=== PATIENT | female | born 1975 | race Caucasian/White ===

== ENCOUNTER → 2017-10-26 12:38 | Outpatient (CLI) | payer OTHER, SELFPAY ==
--- NOTE | 2017-10-26 | FLU_PTH ---
PATIENT: LLOYD EVANS LOC: [facility] U#:[id number] AGE/SX: 50/F ROOM: RE10/26/[address]: Dr. Gloria Malik MD : 1975 BED: DIS: SPEC #: [id number] RECD: 10/26/17 14:55 STATUS: TATIANNA REQ #: [id number] ATIYA: 10/26/17 00:[address]: Gloria Malik DEPT: CYTOLOGY RECD BY: Beau Merchant ENTERED: 10/26/17 14:55 SP TYPE: Fluid OTHR DR: Dr. Alon Guerrier, DO Tissues: A - Thyroid gland, NOS B - Thyroid gland, NOS Procedures: Pap Stain (control) Special Stain Group II Surgery Specimen Level IV Cell Block Cytospin Fluid HEADER OPERATION: Ultrasound-guided fine needle aspiration left thyroid PRE-OP DIAGNOSIS: TISSUE SUBMITTED: A ? FNA left thyroid fluid for cytology, B ? FNA left thyroid slides x8 DIAGNOSIS CYTOLOGY A. Fine needle aspiration, left thyroid nodule (cytospin and cell block): Benign follicular cells present. B. Fine needle aspiration, left thyroid nodule (smears): Adequate for evaluation. Negative, consistent with benign follicular nodule. AM:sergey 10/27/17 CYTOLOGY STUDY Slides are reviewed. CYTOLOGY GROSS A - Received is 32 ml of clear fluid labeled with the patient's name and and designated per the requisition as left thyroid. Submitted for cytology preparation including cell block. B - Received are eight smears labeled with the patient's name and designated per the requisition as left thyroid. Submitted for staining. 10/26/17 TC:5 CPT: 93906, 22643, 72641
== END ==
PROVIDERS: Family Provider Student in an Organized Health Care Education/Training Program; PCP Student in an Organized Health Care Education/Training Program; Visit Provider Surgery
DX: E04.1 Nontoxic single thyroid nodule (principal)
CPT/HCPCS: 88108; 88305; 88313

== ENCOUNTER → 2018-06-16 07:23 | Outpatient (CLI) | payer BC, SELFPAY ==
--- NOTE | 2018-06-16 07:45 | BRBX_PTH ---
PATIENT: LLOYD EVANS LOC: [facility] U#:[id number] AGE/SX: 50/F ROOM: RE06/16/[address]: Dr. Gloria Malik MD : 1975 BED: DIS: SPEC #: [id number] RECD: 06/16/18 08:51 STATUS: TATIANNA SENIA #: [id number] ATIYA: 06/16/18 07:[address]: Gloria Malik DEPT: SURGICAL PATHOLOGY RECD BY: Mervin Anne ENTERED: 06/16/18 12:03 SP TYPE: BREAST BX OTHR DR: Dr. Alon Guerrier, DO Tissues: Right breast, NOS Procedures: Surgery Specimen Level IV HEADER OPERATION: Right stereotactic breast biopsy PRE-OP DIAGNOSIS: Abnormal right calcifications on mammogram TISSUE SUBMITTED: Right breast tissue ISCHEMIC TIME: 1 minute FIXATION TIME: 11.5 hours MICROSCOPIC DIAGNOSIS Right breast, stereotactic core biopsy: Benign breast parenchyma with focal fibrocystic change. Banal microcalcifications. No evidence of malignancy. AM:sergey 06/17/18 COMMENT Case has been reviewed in consultation with Dr. Morales who concurs with the above diagnosis. IDC:SJ MICROSCOPIC DESCRIPTION Slides are reviewed. GROSS DESCRIPTION Received is one container labeled with the patient's name and not further designated. The specimen consists of multiple elongated fragments of quintero-yellow fibroadipose tissue that in aggregate measure 7.5 x 2.5 x 0.3 cm. The entire specimen is submitted in three cassettes. / SJ:sergey 06/16/18 TC:5 CPT: 46275
--- NOTE | 2018-06-16 08:45 | PCM.OPRPT ---
Report of Operation Date of Procedure: 06/16/18 Pre-Operative Diagnosis: abnormal calcifications on right breast mammograms Post-Operative Diagnosis: same Surgery/Procedure Performed:: right breast stereotactifc biopsy Description of Surgical Findings:: abnormal calcifications of right breast mammograms - noted in the specimen mammogram Type of Anesthesia:: Local - 1% xylocaine Specimen's removed: right breast tissue Estimated Blood Loss (mL): < 1 Fluids Replaced: none Description of Procedure: After informed consent was given, the patient was brought into the breast biopsy suite. Appropriate time out protocol was followed. She was then placed in the prone position on the stereotactic biopsy table. The patient?s right breast was then placed in the opening at the head of the table. A manager of construction compression mammogram was then obtained in the lateral view. The suspicious radiological lesion was then identified. Stereo pictures of the lesion were then taken for XYZ coordinates. The Mammotome biopsy stylus was then positioned where it would be entering into the patient?s breast. The skin at this site was then cleansed with a surgical skin preparation. The skin and subcutaneous tissues at this site were then infiltrated with 1% xylocaine. A small skin incision was made with an 11 blade scalpel. The biopsy stylus was then positioned into the patient?s breast at the proper coordinates of depth. Using the Mammotome vacuum-assist device, several core samples of breast tissue were obtained. A specimen mammogram was the obtained and revealed that the abnormal calcifications were within the specimen. A hemostatic marker clip was then placed into the biopsy cavity and a manager of construction film revealed that it was properly deployed. The patient was then placed in the supine position and pressure was applied to the breast until no active bleeding was noted. Suture was placed to reapproximate the skin, then sterile dressing was applied. A unilateral mammogram in the CC and MLO view were then taken which revealed that the marker clip was in the same area as the previous suspicious lesion. The patient tolerated the procedure well and was discharged from the breast biopsy suite in good condition. - Complications none noted
== END ==
LOC: BIRAD 07:27
PROVIDERS: Family Provider Student in an Organized Health Care Education/Training Program; PCP Student in an Organized Health Care Education/Training Program; Referring Provider Surgery; Visit Provider Surgery
DX: R92.8 Other abnormal and inconclusive findings on diagnostic imaging of breast (principal)
CPT/HCPCS: 19081; 88305; J7050

== ENCOUNTER 2019-08-01 08:55 | Day surgery (SDC) | payer BC, SELFPAY ==
--- NOTE | 2019-08-01 07:34 | OP.PCM_ITS ---
Problem List (1) Stress incontinence Status: Acute Report of Operation Date of Procedure: 08/01/19 Pre-Operative Diagnosis: stress incontinence Post-Operative Diagnosis: same Surgery/Procedure Performed:: Altis midurethral sling, cystoscopy Type of Anesthesia:: General Estimated Blood Loss (mL): 5cc Description of Procedure: The patient is a 44-year-old female who presented to the office for evaluation and management of incontinence. She underwent cystoscopy and urodynamics. She is being treated for her urge incontinence and urgency with Myrbetriq, and decided to proceed with mid urethral sling insertion for her stress incontinence. Informed consent was obtained. Patient was taken to the operating room and placed on the operating room table. Anesthesia monitored the head, neck, airway, IV access and vital signs throughout the case. Once anesthesia was appropriately administered the patient was placed into dorsal lithotomy position and was prepped and draped in usual sterile fashion. A 16 Indonesian Becker was inserted into the urinary bladder which was drained. The mid urethra was identified and injected submucosally with 1% Xylocaine with epinephrine. A midline vertical incision was made approximately 2 cm in length. Blunt and sharp dissection was performed on either side of the urethra with care being taken to avoid entry into the urethra. Using the trochars, the alto's mid urethral sling was passed into the obturator complexes bilaterally with care being taken to avoid entrance into the urinary bladder and the vaginal mucosa. The sling lay flat against the urethra. It was not under tension. It was stationed using the tensioning suture which was then cut. The incision in the vaginal mucosa was closed using running interlocking 2-0 Vicryl. Becker catheter was removed and a cystourethroscopy was performed revealing no entrance into the urinary bladder or the urethra with any foreign material incl uding mesh or suture. The patient's bladder was left with a minimal amount of fluid. There were no complications during the procedure, she was taken to the recovery room in good condition. Grafts/Implants Used: Altis midurethral sling - Complications None - Admit VTE Documentation VTE Present on Admission: Yes VTE Mechan Device Prophylaxis: SCD's VTE Pharm Prophylaxis ordered?: No Reason prophylaxis not ordered:: Treatment Not Indicated
--- NOTE | 2019-08-01 09:10 | EKG12_ITS ---
Test Reason : PRE OP Blood Pressure : / mmHG Vent. Rate : 081 BPM Atrial Rate : 081 BPM P-R Int : 132 ms QRS Dur : 120 ms QT Int : 396 ms P-R-T Axes : 059 -30 089 degrees QTc Int : 460 ms Normal sinus rhythm Left axis deviation Right bundle branch block Abnormal ECG When compared with ECG of 12-JUN-2016 07:38, Incomplete left bundle branch block is now Present Confirmed by CAITIE GOODMAN ([id number]), news videotape editor KEENAN CRAIG ([id number]) on 08/04/2019 11:38:33 AM Referred By: Mayra Cantrell Confirmed By:CAITIE GOODMAN
[2019-08-01 09:20] VITALS: BP 117/56; PULSE 78; RESP 15; TEMP 36.8; O2SAT 98; BMI 22.4
[2019-08-01] MEDS: Lactated Ringers 1,000 ML 100 ML IV (09:29)
[2019-08-01 09:31] LABS: Hematocrit 40.6 % (37-47); Mean Corp Hgb Conc 34.5 g/dL (32-36); Mean Corpuscular Hgb 32.9 pg (27.0-32.0); Mean Corpuscular Volume 95.3 fL (81-99); Mean Platelet Vol. 10.8 fl (6.2-12.0); Platelet Count 208 K/mm3 (150-450); RBC Distribution Width CV 12.4 % (11.6-14.6); RBC Distribution Width SD 43.3 fl (35.1-43.9); Red Blood Count 4.26 M/mm3 (4.2-5.4); White Blood Count 5.3 K/mm3 (4.4-11.0)
[2019-08-01] MEDS: Ciprofloxacin 400 MG/200 ML BAG 200 MG IV (09:34)
[2019-08-01 09:44] LABS: International Normalized Ratio 1.1
[2019-08-01 09:45] LABS: Partial Thromboplast Time 30.4 Seconds (24.1-36.2)
--- NOTE | 2019-08-01 09:46 | PCM.DC.URO ---
Discharge Diet: No Restrictions Discharge Activity: May not drive while taking narcotic pain medications., May Shower May resume sexual activity in: 4 weeks Lifting Restrictions: 5 pounds Additional Activity Instructions:: no strenuous exercise, no intercourse, no swimming, no vacuuming Call your doctor if your incision/area has: Continuous Slow Oozing, Sudden Increased Bleeding, Increased Pain/ Swelling, Foul Smelling Discharge Call your doctor if you observe: Fever of 101 or Higher, Inability to urinate, Inability to have a bowel movement, Shortness of breath, Chest pain, Calf discomfort, Uncontrolled pain Allergies/Adverse Reactions: Allergies Penicillins [PCN] Allergy (Verified 08/01/19 09:19) Unknown Medications to take at Discharge Albuterol Inhaler [Ventolin Hfa (SP)] 1 - 2 puff INHALATION Q4H PRN PRN 06/28/15 Fluticasone 0.05% [Flonase Nasal [place]] 1 spray NASAL DAILY PRN 07/25/19 Mirabegron [Myrbetriq] 100 mg PO DAILY 07/25/19 Montelukast [Singulair] 10 mg PO DAILY 07/25/19 Omeprazole [Prilosec] 40 mg PO DAILY 07/25/19 Orders to be completed after discharge: Liver Profile Time Frame: 08/01/19, Facility: [facility], Location: Laboratory Partial Thromboplast Time Time Frame: 08/01/19, Facility: [facility], Location: Laboratory Prothrombin Time w/INR Time Frame: 08/01/19, Facility: [facility], Location: Laboratory Thyroid Stim Hormone (TSH) Time Frame: 08/01/19, Facility: [facility], Location: Laboratory Primary Care Physician: Alon Guerrier DO [Primary Care Provider] - Test Results: Test results from this visit will be discussed in further detail at your follow-up appointment, if applicable. Please Follow Up With: Mayra Cantrell MD When: call office for appt in 2 weeks Proposed Discharge Date: 08/01/19
[2019-08-01 09:54] LABS: AST(SGOT) 18 U/L (15-37); Alanine Aminotransfer ALT/SGPT 21 U/L (13-56); Alkaline Phosphatase 66 U/L (45-117); Bilirubin, Direct 0.13 mg/dL (0.00-0.30); Globulin 3.6 g/dL (2.2-4.2); Protein, Total 7.6 g/dL (6.4-8.2); Thyroid Stim Hormone (TSH) 0.13 uIU/mL (0.358-3.74)
[2019-08-01 10:37] VITALS: BP 117/56; BP 92/42; PULSE 67; RESP 16; TEMP 36.3; O2SAT 93
[2019-08-01 10:45] VITALS: BP 117/56; BP 95/60; PULSE 65; RESP 16; O2SAT 97
[2019-08-01 11:00] VITALS: BP 117/56; BP 121/77; PULSE 77; RESP 16; O2SAT 100
[2019-08-01 11:15] VITALS: BP 106/92; BP 117/56; PULSE 87; RESP 16; TEMP 36.6; O2SAT 99
[2019-08-01] MEDS: Acetaminophen 325 MG Tablet 650 MG PO (12:21)
[2019-08-01 12:23] VITALS: BP 117/56; BP 134/63; PULSE 71; RESP 18; TEMP 36.5; O2SAT 98
== END 2019-08-01 12:41 | disposition home or self-care (01) ==
LOC: SDC 08:59 → AC 09:00
PROVIDERS: Anesthesiology; Family Provider Student in an Organized Health Care Education/Training Program; PCP Student in an Organized Health Care Education/Training Program; Referring Provider Urology; Visit Provider Urology
PROC: 0TJB8ZZ Inspection of Bladder, Via Natural or Artificial Opening Endoscopic (ICD-10-PCS; CPT 57288; principal; 2019-08-01 10:10)
DX: N39.3 Stress incontinence (female) (male) (principal); I45.2 Bifascicular block; R35.0 Frequency of micturition; N39.41 Urge incontinence
CPT/HCPCS: 00860; 57288; 36415; 80076; 84443; 85027; 85610; 85730; 93005; J7120; J0744; J2405

== ENCOUNTER → 2020-05-07 17:47 | Outpatient (CLI) | payer BC, SELFPAY | PROVIDERS: PCP Student in an Organized Health Care Education/Training Program; Referring Provider Registered Nurse; Visit Provider Registered Nurse | DX: Z20.828 Contact with and (suspected) exposure to other viral communicable diseases (principal) | CPT/HCPCS: 87635; C9803; U0003 ==

== ENCOUNTER 2021-12-03 12:30 | Emergency (ER) | payer BC, SELFPAY ==
[2021-12-03 12:31] VITALS: BP 158/88; PULSE 114; RESP 16; TEMP 36.6; O2SAT 98; BMI 24.5
--- NOTE | 2021-12-03 12:56 | EDS_ITS ---
HPI History of Present Illness Chief Complaint: Upper Extremity Injury Informant: patient Narrative Narrative: 46-year-old female presenting with right hand and wrist pain. Patient states she punched a window on Wednesday. She complains of persistent pain. Window did not break. She is right-handed. She has tried Tylenol and ice at home. PFSH PFSH Home Medications albuterol sulfate [Ventolin HFA] 1 - 2 puff INHALATION Q4H PRN PRN 06/28/15 [History Last Taken Unknown] fluticasone propionate 1 spray NASAL DAILY PRN 07/25/19 [History Last Taken Unknown] mirabegron 100 mg PO DAILY 07/25/19 [History Last Taken Unknown] montelukast 10 mg PO DAILY 07/25/19 [History Last Taken Unknown] omeprazole 40 mg PO DAILY 07/25/19 [History Last Taken 08/01/19 07:00] hydrocodone-acetaminophen 1 tab PO Q6H PRN PRN 3 Days #6 tablet 12/03/21 [Rx Last Taken Unknown] Allergy/AdvReac Type Severity Reaction Status Date / Time Penicillins [PCN] Allergy Unknown Verified 12/03/21 12:32 Social History Smoking Status: Former smoker ROS ROS ED Constitutional Constitutional ED: Denies fever(s) Musculoskeletal Musculoskeletal: Reports other Details: Right hand and wrist pain Integumentary Denies rash Psychiatric Psychiatric: Denies suicidal thoughts EXAM Physical Exam Const Vital Signs: 12/03/21 12:31 Temperature 97.8 F Temperature Source Temporal Pulse Rate 114 H Respiratory Rate 16 Blood Pressure 158/88 H Blood Pressure Mean 111 Pulse Ox 98 Oxygen Delivery Method Room Air Positive well nourished and well developed General Appearance ED: well developed HEENT Reports normocephalic and head/scalp atraumatic Eyes PERRL and EOMs intact bilaterally Neck supple General: Negative for tenderness Chest Wall inspection of chest normal Resp normal respiratory effort and clear to auscultation bilaterally Cardio regular rate and regular rhythm no CVA tenderness Extremity Extremity Narrative: diffuse tenderness right hand and wrist. Painful full range of motion. Normal cap refill Neuro oriented x3 Sensorium / Orientation: alert Psych mental status grossly normal Skin Trauma: no lacerations or abrasions MDM MDM MDM Narrative Medical decision making narrative: X-ray right hand, wrist, forearm were read by myself and radiology and show no acute process. Patient was given Velcro wrist splint. She is advised to ice and elevate. She is given prescription for short course of [place]. She is advised to take ibuprofen. Advised to follow up with primary care physician. Advised return to ED for worsening complaints. Discharge Plan Triage Chief Complaint: Upper Extremity Injury ED Provider: Emma De La Paz Dx/Rx/DC Orders Clinical Impression: Right wrist sprain Instructions: ED Wrist Sprain Prescriptions: New hydrocodone-acetaminophen 5-325 mg tablet 1 tab PO Q6H PRN PRN (Reason: Pain) 3 Days Qty: 6 RF: 0 No Action albuterol sulfate [Ventolin HFA] 1 INHALER inhaler 1 - 2 puff inhalation Q4H PRN PRN (Reason: Wheezing) RF: 0 omeprazole 20 MG capsule 40 mg PO DAILY RF: 0 montelukast 10 MG tablet 10 mg PO DAILY RF: 0 fluticasone propionate 1 SPRAY spray,suspension 1 spray NASAL DAILY PRN (Reason: Nasal Congestion) RF: 0 mirabegron 50 MG tablet extended release 24 hr 100 mg PO DAILY RF: 0 Primary Care Provider: Alon Guerrier Referrals: Alon Guerrier DO [Primary Care Provider] - Disposition Disposition: Home, Self Care
--- NOTE | 2021-12-03 12:57 | RAD_ITS ---
STUDY: X-RAY - RIGHT RADIUS AND ULNA REASON FOR EXAM: Female, 46 years old. Pain TECHNIQUE: 2 view(s) of the forearm. COMPARISON: None. FINDINGS: There is no demonstrated soft tissue swelling. Normal visualized radius. Normal visualized ulna. RAD/Forearm 2 Views IMPRESSION: Normal x-ray examination of the radius and ulna. Electronically Signed: Pedro Brooks MD at 13:29 EDT ,
--- NOTE | 2021-12-03 12:57 | RAD_ITS ---
STUDY: X-RAY - RIGHT WRIST REASON FOR EXAM: Female, 46 years old. Pain TECHNIQUE: 3 view(s) of the wrist were obtained. COMPARISON: None. FINDINGS: Normal visualized distal radius and ulna. Normal radiocarpal articulation. Normal distal radioulnar articulation. Normal carpal bones. Normal carpal articulations. Normal carpometacarpal articulation of the thumb. Normal second through fifth carpometacarpal articulations. Normal visualized metacarpal bones. The soft tissue structures are unremarkable. RAD/Wrist min 3 Views IMPRESSION: Normal x-ray examination of the wrist. Electronically Signed: Pedro Brooks MD at 13:29 EDT ,
--- NOTE | 2021-12-03 12:57 | RAD_ITS ---
STUDY: X-RAY - RIGHT HAND REASON FOR EXAM: Female, 46 years old. Pain TECHNIQUE: 3 view(s) of the hand. COMPARISON: None. FINDINGS: Normal radiocarpal articulation. Normal distal radioulnar joint. Normal visualized carpal bones. Normal carpal articulations Normal carpometacarpal articulation of the thumb. Normal second through fifth carpometacarpal joints. Normal metacarpi. Normal metacarpophalangeal joint of the thumb. Normal interphalangeal joint of the thumb. Normal proximal and distal phalanges of the thumb. Normal metacarpophalangeal joints of the second through fifth fingers. Normal proximal and distal interphalangeal joints of the second through fifth fingers. Normal phalanges of the second through fifth fingers. The soft tissue structures are unremarkable. RAD/Hand Min 3 Views IMPRESSION: Normal x-ray examination of the hand. Electronically Signed: Pedro Brooks MD at 13:28 EDT ,
== END 2021-12-03 14:00 | disposition home or self-care (01) ==
PROVIDERS: Emergency Provider Emergency Medicine; PCP Student in an Organized Health Care Education/Training Program; Visit Provider Emergency Medicine
DX: S63.91XA Sprain of unspecified part of right wrist and hand, initial encounter (principal); Z87.891 Personal history of nicotine dependence; W22.01XA Walked into wall, initial encounter
CPT/HCPCS: 73090; 73110; 73130; 99283

== ENCOUNTER 2022-04-20 12:49 | Emergency (ER) | payer BC, SELFPAY ==
[2022-04-20 12:50] VITALS: BP 177/151; PULSE 83; RESP 24; TEMP 36.8; O2SAT 99; BMI 23.0
--- NOTE | 2022-04-20 13:10 | CT_ITS ---
STUDY: CT ABDOMEN AND PELVIS WITHOUT CONTRAST REASON FOR EXAM: Female, 46 years old. Kidney Stone RADIATION DOSAGE (If Supplied By Facility): CTDIvol = ( 6.24 ) mGy, DLP = ( 314.80 ) mGycm TECHNIQUE: Transaxial images were obtained from the dome of the diaphragm to the symphysis pubis without oral contrast, and without intravenous contrast. Sagittal and coronal images were reconstructed. Individualized dose optimization techniques were used for this CT. COMPARISON: None. FINDINGS: The visualized lung bases are unremarkable. The visualized portions of the heart are within normal limits. Normal liver. Small capsular calcification noted in the posterior medial aspect of the right lobe of the liver. There are surgical clips in the gallbladder fossa consistent with a prior cholecystectomy. Normal spleen. Normal pancreas. Normal bilateral adrenal glands. Normal right kidney. Normal left kidney. No visualized radiopaque kidney stones or hydronephrosis or hydroureter on the current study. Normal visualized stomach. Normal small intestine. There are multiple colonic diverticula consistent with diverticulosis. There is non-visualization of the appendix. No free air or free fluid or bowel dilatation or evidence of obstruction. Normal abdominal aorta. Normal inferior vena cava. Normal retroperitoneum. Normal urinary bladder. Unremarkable uterus and bilateral ovaries. Right ovarian/adnexal clips noted. A displaced 1.54 cm metallic clip is present in the right presacral region which most likely originated in the left adnexa. Small left ovarian cyst noted. Normal abdominal wall. There are diffuse degenerative changes of the visualized lumbar spine. CT/Abdomen/Pelvis without Cont IMPRESSION: 1. Colonic diverticulosis. No free air or free fluid or inflammatory stranding seen. 2. No visualized radiopaque kidney stones or hydronephrosis or hydroureter on the current study. Electronically Signed: Nathan Michael MD at 15:05 EDT ,
--- NOTE | 2022-04-20 13:14 | EDS_ITS ---
HPI HPI - GI History of Present Illness Chief Complaint: Flank Pain Narrative Narrative: Patient presents with sudden onset of right flank pain that began at 830 this morning, almost 5 hours ago. She states she got up at 5:00 in the morning to go to work, when she got there she had sudden onset of right flank pain that radiates towards the front. She denies any fevers or chills. No dysuria or hematuria. She had past medical history of uterine ablation and has not had a menstrual period for at least 10 years. She denies any exacerbating or alleviating factors. Pain is continuous and getting worse. She is slightly nauseated from the pain. [facility] Medical History IBS (irritable bowel syndrome) Home Medications albuterol sulfate 90 mcg/actuation aerosol inhaler (Ventolin HFA) 1 - 2 puff inhalation Q4H PRN PRN Wheezing 06/28/15 [History Last Taken Unknown] fluticasone propionate 50 mcg/actuation nasal spray,suspension 1 spray NASAL DAILY PRN Nasal Congestion 07/25/19 [History Last Taken Unknown] mirabegron 50 mg tablet,extended release 24 hr 100 mg PO DAILY 07/25/19 [History Last Taken Unknown] montelukast 10 mg tablet 10 mg PO DAILY 07/25/19 [History Last Taken Unknown] omeprazole 20 mg capsule,delayed release 40 mg PO DAILY 07/25/19 [History Last Taken 08/01/19 07:00] hydrocodone-acetaminophen 5-325mg 5mg-325mg 1 tab PO Q6H PRN PRN Pain 3 days #6 TABLETS 12/03/21 [Rx Last Taken Unknown] dicyclomine 20 mg tablet 20 mg PO TID PRN abdominal cramping #20 tabs 04/20/22 [Rx Last Taken Unknown] Allergy/AdvReac Type Severity Reaction Status Date / Time Penicillins [PCN] Allergy Unknown Verified 04/20/22 12:50 Social History Smoking Status: Former smoker ROS ROS ED ROS Narrative Constitutional: No fever, no chills. HEENT: No sore throat. No neck pain. No loss of vision. No rhinorrhea. Cardiovascular: No chest pain. No palpitations. No pedal edema. Respiratory: No cough, no shortness of breath. Abdominal: No abdominal pain. Positive nausea. No vomiting. Genitourinary: No dysuria. No hematuria. Positive right flank pain, sharp and stabbing. Musculoskeletal: No myalgias. No arthralgias. Neurologic: No headaches. No dizziness. No lightheadedness. Skin: No rash. No change in color. Psychiatric: No depression. No anxiety. EXAM Physical Exam Narrative Exam Narrative: Afebrile. Vital signs noted. HEENT: Normocephalic. Atraumatic. PERRL, EOMI. Neck soft and supple. No point tenderness or step off. Cardiovascular: Regular rate and rhythm. No murmurs, rubs, or gallops appreciated. Respiratory: No tachypnea. Lungs clear to auscultation bilaterally. Gastrointestinal: Abdomen soft, nontender, with normoactive bowel sounds. No rebound or guarding. Neurological: Awake. Alert. Nonfocal, nonlateralizing. Skin: No rash. Normal color. No pallor. Musculoskeletal: No pedal edema. Full range of motion extremities. Const Vital Signs: 04/20/22 12:50 Temperature 98.2 F Temperature Source Temporal Pulse Rate 83 Respiratory Rate 24 H Blood Pressure 177/151 H Blood Pressure Mean 159 Pulse Ox 99 Oxygen Delivery Method Room Air MDM MDM MDM Narrative Medical decision making narrative: Comprehensive work-up was pursued. Given her right flank pain, concern is for ureterolithiasis with obstruction. She has normal white count of 7.9, hemoglobin slightly low 11.9, hematocrit 34.7 with normal platelet count of 175. Electrolyte panel is grossly unremarkable except for chloride 114, BUN elevated at 19 with a creatinine of 1.0. Glucose appropriately elevated at 92 with a normal anion gap of 6. Urinalysis shows no evidence of white cells or red cells. CT of the abdomen and pelvis without contrast shows no acute process. There is no ureterolithiasis or hydronephrosis. At this point in time, I am unsure as to the cause of her right-sided flank pain. Upon repeat examination her abdomen remains soft. She states she is having pain in the right flank that is also crampy in nature at times. When you press on it she states that it goes up along her right flank. She was given 1 Bentyl tablet here in the emergency department and prescription written for the next week. She can take that intermittently and follow-up with her primary care physician. I feel she can be discharged safely home with follow-up. Return instructions to the emergency department were reviewed. Disposition is discharged home in stable condition. Lab Data Labs: Laboratory Results - last 24 hr 04/20/22 04/20/22 04/20/22 13:25 13:25 14:06 WBC 7.9 RBC 3.53 L Hgb 11.9 L Hct 34.7 L MCV 98.3 MCH 33.7 H MCHC 34.3 RDW Std Deviation 45.1 H RDW Coeff of Jay 12.7 Plt Count 175 MPV 11.1 Immature Gran % (Auto) 0.300 Neut % (Auto) 65.4 Lymph % (Auto) 28.1 [place] % (Auto) 4.8 Eos % (Auto) 1.1 Baso % (Auto) 0.3 Absolute Neuts (auto) 5.2 Absolute Lymphs (auto) 2.21 Nucleated RBC % 0 Sodium 141 Potassium 4.0 Chloride 114 H Carbon Dioxide 21.0 Anion Gap 6 BUN 19 H Creatinine 1.00 Estim Creat Clear Calc 59.39 Est GFR (MDRD) Af Amer 78 Est GFR (MDRD) Non-Af 64 BUN/Creatinine Ratio 19.1 Glucose 92 Calcium 8.7 Urine Color Yellow Urine Clarity Clear Urine pH 7.0 Ur Specific [place] 1.015 Urine Protein Negative Urine Glucose (UA) Normal Urine Ketones 15 H Urine Occult Blood Negative Urine Nitrite Negative Urine Bilirubin Negative Urine Urobilinogen Normal Ur Leukocyte Esterase Negative Urine RBC 0 SEEN Urine WBC 0 SEEN Ur Squamous Epith Cells 0-5 SEEN Urine Bacteria 0 SEEN Urine Mucus 0 SEEN Radiography Diagnostic Testing: Clinical Impression(s) from Imaging Studies Abdomen/Pelvis CT 04/20/22 13:10 IMPRESSION: 1. Colonic diverticulosis. No free air or free fluid or inflammatory stranding seen. 2. No visualized radiopaque kidney stones or hydronephrosis or hydroureter on the current study. Electronically Signed: Nathan Michael MD at 15:05 EDT , Discharge Plan Triage Chief Complaint: Flank Pain Other Complaint: Abd Pain ED Provider: Carlos Eduardo Jang Dx/Rx/DC Orders Clinical Impression: Right flank pain, Abdominal cramping Instructions: ED Abdominal Pain Unkn Cause Fem, ED Flank Pain, Uncertain Cause Prescriptions: New dicyclomine 20 mg tablet 20 mg PO TID PRN (Reason: abdominal cramping) Qty: 20 0RF No Action albuterol sulfate [Ventolin HFA] 1 INHALER inhaler 1 - 2 puff inhalation Q4H PRN PRN (Reason: Wheezing) omeprazole 20 MG capsule 40 mg PO DAILY montelukast 10 MG tablet 10 mg PO DAILY fluticasone propionate 1 SPRAY spray,suspension 1 spray NASAL DAILY PRN (Reason: Nasal Congestion) mirabegron 50 MG tablet extended release 24 hr 100 mg PO DAILY hydrocodone-acetaminophen 5-325 mg tablet 1 tab PO Q6H PRN PRN (Reason: Pain) 3 Days Qty: 6 0RF Stand Alone Forms: ED Work / School Excuse Primary Care Provider: Alon Guerrier Referrals: Alon Guerrier, DO [Primary Care Provider] - 3-5 Days if not improving Disposition Disposition: Home, Self Care
[2022-04-20] MEDS: Ketorolac 15 MG/ML Vial IV (13:24)
[2022-04-20] MEDS: Ondansetron 4 MG/2 ML Vial IV (13:24)
[2022-04-20] MEDS: Morphine 4 MG/ML Syringe IV (13:24)
[2022-04-20 13:32] LABS: Absolute Lymphocyte Count 2.21 X10^3/uL (0.83-4.51); Absolute Neutrophil Count 5.2 X10^3/uL (2.0-7.7); Basophil# 0.02 X10^3/uL; Basophil% 0.3 % (0-1); Eosinophil# 0.09 X10^3/uL; Eosinophils% 1.1 % (0-5); Hematocrit 34.7 % (37-47); Hemoglobin 11.9 g/dL (12.0-15.0); Lymphocyte # 2.21 X10^3/ul (0.83-4.51); Lymphocyte % 28.1 % (19-41); Mean Corp Hgb Conc 34.3 g/dL (32-36); Mean Corpuscular Hgb 33.7 pg (27.0-32.0); Mean Corpuscular Volume 98.3 fL (81-99); Mean Platelet Vol. 11.1 fl (6.2-12.0); Monocyte# 0.38 X10^3/uL; Monocyte% 4.8 % (0-10); NRBC Flagged by Analyzer 0 % (0-5); Neutrophil # 5.15 X10^3/uL (2.7-7.7); Neutrophil % 65.4 % (47-70); Platelet Count 175 K/mm3 (150-450); RBC Distribution Width CV 12.7 % (11.6-14.6); RBC Distribution Width SD 45.1 fl (35.1-43.9); Red Blood Count 3.53 M/mm3 (4.2-5.4); White Blood Count 7.9 K/mm3 (4.4-11.0)
[2022-04-20 13:46] LABS: Anion Gap 6 (5-15); BUN 19 mg/dL (7-18); BUN/Creat Ratio 19.1 RATIO (10-20); Calcium,Total 8.7 mg/dL (8.5-10.1); Chloride 114 mmol/L (98-107); EST Glomerular Filtration Rate 64 mL/min (>60); Est Glom Filt Rate - Afr Amer 78 mL/min (>60); Estimated Creatinine Clearance 59.39 ml/min; Glucose 92 mg/dL (74-106); Sodium Level 141 mmol/L (136-145)
[2022-04-20 14:08] LABS: Bacteria 0 SEEN /hpf (None Seen); Mucous, Urine 0 SEEN /hpf (<or=2+); Red Blood Cells-Urine 0 SEEN /hpf (0-5); White Blood Cells 0 SEEN /hpf (0-5)
[2022-04-20 14:11] LABS: Color, Urine Yellow (Yellow); Glucose, Dipstick Normal (Normal); Ketone-Dipstick 15 mg/dl (Negative); Leukocyte Esterase-Dipstick Negative /ul (Negative); Nitrite-Dipstick Negative (Negative); Occult Blood-Urine Negative /ul (Negative); Protein-Dipstick Negative (Negative); Specific Gravity, Urine 1.015 (1.002-1.030); Urine Bilirubin Dipstick Negative (Negative); Urine Clarity Clear (Clear); Urine Urobilinogen Normal (Normal)
[2022-04-20 14:19] LABS: Squamous Epithelial Cells - UA 0-5 SEEN /hpf (5-10)
[2022-04-20] MEDS: Dicyclomine 10 MG Capsule 20 MG PO (15:30)
[2022-04-20 15:42] VITALS: BP 133/70
== END 2022-04-20 15:47 | disposition home or self-care (01) ==
PROVIDERS: Emergency Provider Emergency Medicine; PCP Student in an Organized Health Care Education/Training Program; Visit Provider Emergency Medicine
DX: R10.9 Unspecified abdominal pain (principal); R11.0 Nausea; Z87.891 Personal history of nicotine dependence; K58.9 Irritable bowel syndrome, unspecified
CPT/HCPCS: 74176; 80048; 81001; 85025; 99284; A4216; J2405

== ENCOUNTER 2022-05-12 18:53 | Observation (INO) | payer BC, SELFPAY ==
[2022-05-12 18:54] VITALS: BP 134/65; PULSE 97; RESP 16; TEMP 36.8; O2SAT 97; BMI 22.1
--- NOTE | 2022-05-12 19:34 | CM.ED ---
SW Note SW met with patient as chart indicated patient was here for detox. Patient said that she wants detox from alcohol. Patient's last drink was early this morning or last night. Patient said that she is a recovering drug addict but I have never done detox before. Patient said that she previously tried heroin and meth but has been sober since 2016 from those drugs. Patient reports she continues to smoke marijuana. Patient said that some days I don't drink but when I do.. I binge drink. Patient said that she drank Wednesday/Wednesday/Wednesday and Wednesday. Patient reports drinking 4 10 packs of Captalfonso Choudhary during this past weekend. Patient said that she went to [facility] as I couldn't keep anything down .. I thought I had alcohol poisoning. SW reviewed with patient that she can not have any phones, outside food or outside visitors and her personal items are locked. Patient said what about my medicine? and SW inquired if patient was on Suboxone and patient said no. Patient said that she was given Ativan at [facility] and she had taken the Ativan. SW advised patient to speak to the RN regarding her medicine. Patient reports that she had been with [facility] in the past for AOD counseling and treatment but it was a long time ago. CHELSEA called Celestine at 24 hour treatment navigator and updated him regarding patient's desire for detox. Celestine said that Leighton will be in tomorrow and he will let her know. Plan: Ramp for detox Billie CHUN
--- NOTE | 2022-05-12 19:39 | CT_ITS ---
STUDY: CT BRAIN WITHOUT CONTRAST REASON FOR EXAM: Female, 46 years old. Trauma. RADIATION DOSAGE (If Supplied By Facility): CTDIvol = ( 44.99 ) mGy, DLP = ( 745.49 ) mGycm TECHNIQUE: Transaxial CT imaging of the brain was performed without administration of intravenous contrast material. Individualized dose optimization techniques were used for this CT. COMPARISON: No relevant priors. FINDINGS: Normal soft tissue structures. Normal calvarium. Normal size ventricles and extra-axial spaces for the patient''s age. Normal white matter tracts of the cerebral hemispheres. Normal basal ganglia and thalami. Normal brainstem. Normal cerebellum. There is no intracranial hemorrhage. There are no findings of an acute ischemic infarction. Normal visualized paranasal sinuses. CT/Brain/Head without Contrast IMPRESSION: Normal unenhanced CT scan of the brain. Electronically Signed: Fan Mcginnis DO at 20:46 EDT ,
--- NOTE | 2022-05-12 19:41 | EDS_ITS ---
HPI History of Present Illness Chief Complaint: ETOH Intox Informant: patient Narrative Narrative: 46-year-old female presents to the emergency room requesting detox from alcohol. Patient states that her father about a year and a half ago and was an alcoholic. This is when she started using alcohol to cope. She notes her daughter is a drug addict. She has been drinking at least a pint of rum a day. She states he starts drinking as soon as she gets home and stops only when she passes out. She states she has been falling down and causing bruises and she does not know how she is fallen down. She states that last night she passed out and lost control of her bowels. She states that this was her [place]. This morning she could not stop vomiting so she went to [facility] and received treatment and they recommended the [facility] program. She states she occasionally uses recreational marijuana. She states that she is in a relationship that is somewhat toxic but that person does not drink. When she passes out she does not know if she has hit her head before. She took an Ativan which she has been prescribed but is not listed in her [facility]AR[facility] report. Just prior to coming to the hospital. [facility] Medical History IBS (irritable bowel syndrome) Home Medications albuterol sulfate 90 mcg/actuation aerosol inhaler (Ventolin HFA) 1 - 2 puff inhalation Q4H PRN PRN Wheezing 06/28/15 [History Last Taken 2 Days Ago ~05/10/22] fluticasone propionate 50 mcg/actuation nasal spray,suspension 1 spray NASAL DAILY PRN Nasal Congestion 07/25/19 [History Last Taken 2 Days Ago ~05/10/22] montelukast 10 mg tablet 10 mg PO DAILY 07/25/19 [History Last Taken 2 Days Ago ~05/10/22] estradiol 0.5 mg tablet 0.5 mg PO DAILY HORMONES 05/12/22 [History Last Taken 2 Days Ago ~05/10/22] lorazepam 1 mg tablet 1 mg PO BID anxiety 05/12/22 [History Last Taken 05/12/22] ondansetron 4 mg disintegrating tablet 4 mg PO Q8H PRN Nausea 05/12/22 [History Last Taken Unknown] pantoprazole 40 mg tablet,delayed release 40 mg PO DAILY GERD 05/12/22 [History Last Taken 2 Days Ago ~05/10/22] progesterone micronized 100 mg capsule 100 mg PO QHS HORMONES 05/12/22 [History Last Taken 2 Days Ago ~05/10/22] topiramate 25 mg tablet 25 mg PO DAILY QUICK 05/12/22 [History Last Taken 2 Days Ago ~05/10/22] trazodone 50 mg tablet 50 mg PO QHS SLEEP 05/12/22 [History Last Taken 2 Days Ago ~05/10/22] Allergy/AdvReac Type Severity Reaction Status Date / Time Penicillins [PCN] Allergy Unknown Verified 05/12/22 18:54 Social History (Updated 05/12/22 @ 19:[address] Benjamin Cuevas, DO) Smoking Status: Former smoker alcohol intake: current alcohol intake frequency: 3 or more drinks per day ROS ROS ED Constitutional Constitutional ED: Denies chills or weight loss Eyes Eyes: Denies change in vision or diplopia ENT ENT ED: Denies ear pain, rhinorrhea or sore throat Cardiovascular Cardiovascular: Denies chest pain, orthopnea, palpitations or racing heartbeat Respiratory/Chest Respiratory/Chest: Denies cough, dyspnea or orthopnea Gastrointestinal Gastrointestinal: Reports diarrhea, nausea and vomiting; Denies abdominal pain Genitourinary Genitourinary ED: Denies dysuria, hematuria or urinary frequency Musculoskeletal Musculoskeletal: Denies arthralgias or myalgias Integumentary Reports other Details: Patient notes various bruises on her extremities. ; Denies abscess or rash Neurologic Neurologic: Denies headache(s) or weakness Psychiatric Psychiatric: Denies anxiety, depression, suicidal ideation or suicidal thoughts Endocrine Endocrinology: Denies polydipsia, polyphagia or polyuria Allergic/Immunologic Allergic/Immunologic ED: Denies mouth swelling, tongue swelling or urticaria EXAM Physical Exam Const Vital Signs: 05/12/22 18:54 Temperature 98.2 F Temperature Source Temporal Pulse Rate 97 Respiratory Rate 16 Blood Pressure 134/65 H Blood Pressure Mean 88 Pulse Ox 97 Oxygen Delivery Method Room Air Positive well nourished and well developed General Appearance ED: well developed HEENT Reports normocephalic, head/scalp atraumatic and moist mucous membranes Eyes PERRL and EOMs intact bilaterally Neck no lymphadenopathy, supple and no JVD Resp normal respiratory effort and clear to auscultation bilaterally Cardio regular rate, regular rhythm and no murmurs GI normal to inspection, nondistended, normoactive bowel sounds and non-tender Palpation: soft Back/Spine no CVA tenderness and normal ROM Extremity normal to inspection General Extremety ED: Negative for edema General Extremity: Negative for edema Neuro oriented x3 and CN's II-XII intact bilaterally Sensorium / Orientation: alert Motor Exam: strength 5/5 throughout Psych mental status grossly normal Mood & Affect: tearful; Negative for depressed Skin no rashes or lesions noted and no wounds Skin Narrative: Patient has multiple contusions of various states of healing. MDM MDM MDM Narrative Medical decision making narrative: CT the brain was obtained because of her frequent falls and lack of knowledge about hitting her head. This was negative for intracranial hemorrhage or fracture. Patient blood work was obtained and she is medically cleared. I will speak with the hospitalist regarding admission Lab Data Attestation: I reviewed the patient's lab results. Labs: Laboratory Results - last 24 hr 05/12/22 05/12/22 05/12/22 19:51 19:51 19:51 WBC 7.6 RBC 3.75 L Hgb 12.7 Hct 35.9 L MCV 95.7 MCH 33.9 H MCHC 35.4 RDW Std Deviation 43.2 RDW Coeff of Jay 12.4 Plt Count 183 MPV 10.4 Immature Gran % (Auto) 0.100 Neut % (Auto) 62.1 Lymph % (Auto) 28.1 [place] % (Auto) 9.0 Eos % (Auto) 0.3 Baso % (Auto) 0.4 Absolute Neuts (auto) 4.7 Absolute Lymphs (auto) 2.13 Nucleated RBC % 0 PT 15.7 H INR 1.3 Sodium Potassium Chloride Carbon Dioxide Anion Gap BUN Creatinine Estim Creat Clear Calc Est GFR (MDRD) Af Amer Est GFR (MDRD) Non-Af BUN/Creatinine Ratio Glucose Calcium Total Bilirubin AST ALT Alkaline Phosphatase Total Protein Albumin Globulin Albumin/Globulin Ratio Serum , Qual NEGATIVE Urine Opiates Screen Urine Methadone Screen Ur Barbiturates Screen Ur Phencyclidine Scrn Ur Amphetamines Screen MDMA (Ecstasy) Screen U Benzodiazepines Scrn Urine Cocaine Screen U Cannabinoids Screen Ur Drug Screen Comment Ethyl Alcohol 05/12/22 05/12/22 05/12/22 19:51 19:51 19:51 WBC RBC Hgb Hct MCV MCH MCHC RDW Std Deviation RDW Coeff of Jay Plt Count MPV Immature Gran % (Auto) Neut % (Auto) Lymph % (Auto) [place] % (Auto) Eos % (Auto) Baso % (Auto) Absolute Neuts (auto) Absolute Lymphs (auto) Nucleated RBC % PT INR Sodium 142 Potassium 3.4 L Chloride 111 H Carbon Dioxide 23.0 Anion Gap 8 BUN 12 Creatinine 0.78 Estim Creat Clear Calc 79.48 Est GFR (MDRD) Af Amer 103 Est GFR (MDRD) Non-Af 85 BUN/Creatinine Ratio 15.4 Glucose 107 H Calcium 8.2 L Total Bilirubin 1.80 H AST 27 ALT 27 Alkaline Phosphatase 69 Total Protein 6.7 Albumin 3.6 Globulin 3.1 Albumin/Globulin Ratio 1.2 Serum , Qual Urine Opiates Screen NEGATIVE Urine Methadone Screen NEGATIVE Ur Barbiturates Screen NEGATIVE Ur Phencyclidine Scrn NEGATIVE Ur Amphetamines Screen NEGATIVE MDMA (Ecstasy) Screen NEGATIVE U Benzodiazepines Scrn NEGATIVE Urine Cocaine Screen NEGATIVE U Cannabinoids Screen POSITIVE H Ur Drug Screen Comment Ethyl Alcohol 6.0 Radiography Diagnostic Testing: Clinical Impression(s) from Imaging Studies Brain CT 05/12/22 19:39 IMPRESSION: Normal unenhanced CT scan of the brain. Electronically Signed: Fan Mcginnis DO at 20:46 EDT Reading Location ID and State: [address] [place] [address] Tel [phone], Service support , Discharge Plan Dx/Rx/DC Orders Clinical Impression: Alcoholism, Contusion of multiple sites, Alcohol withdrawal Disposition Disposition: Acute Care Hospital [facility]
[2022-05-12 20:00] LABS: Absolute Lymphocyte Count 2.13 X10^3/uL (0.83-4.51); Absolute Neutrophil Count 4.7 X10^3/uL (2.0-7.7); Basophil# 0.03 X10^3/uL; Basophil% 0.4 % (0-1); Eosinophil# 0.02 X10^3/uL; Eosinophils% 0.3 % (0-5); Hematocrit 35.9 % (37-47); Hemoglobin 12.7 g/dL (12.0-15.0); Lymphocyte # 2.13 X10^3/ul (0.83-4.51); Lymphocyte % 28.1 % (19-41); Mean Corp Hgb Conc 35.4 g/dL (32-36); Mean Corpuscular Hgb 33.9 pg (27.0-32.0); Mean Corpuscular Volume 95.7 fL (81-99); Mean Platelet Vol. 10.4 fl (6.2-12.0); Monocyte# 0.68 X10^3/uL; NRBC Flagged by Analyzer 0 % (0-5); Neutrophil % 62.1 % (47-70); Platelet Count 183 K/mm3 (150-450); RBC Distribution Width CV 12.4 % (11.6-14.6); RBC Distribution Width SD 43.2 fl (35.1-43.9); Red Blood Count 3.75 M/mm3 (4.2-5.4); White Blood Count 7.6 K/mm3 (4.4-11.0)
[2022-05-12 20:15] LABS: ALB/GLOB Ratio 1.2 RATIO (0.9-2.4); AST(SGOT) 27 U/L (15-37); Alanine Aminotransfer ALT/SGPT 27 U/L (13-56); Albumin, Serum 3.6 g/dL (3.2-5.0); Alkaline Phosphatase 69 U/L (45-117); Anion Gap 8 (5-15); BUN 12 mg/dL (7-18); BUN/Creat Ratio 15.4 RATIO (10-20); Calcium,Total 8.2 mg/dL (8.5-10.1); Chloride 111 mmol/L (98-107); Creatinine, Serum 0.78 mg/dL (0.55-1.02); EST Glomerular Filtration Rate 85 mL/min (>60); Est Glom Filt Rate - Afr Amer 103 mL/min (>60); Estimated Creatinine Clearance 79.48 ml/min; Globulin 3.1 g/dL (2.2-4.2); Glucose 107 mg/dL (74-106); Potassium 3.4 mmol/L (3.5-5.1); Protein, Total 6.7 g/dL (6.4-8.2); Sodium Level 142 mmol/L (136-145)
[2022-05-12 20:19] LABS: Amphetamine Urine VISTA NEGATIVE (<1000 ng/mL); Barbiturate Urine VISTA NEGATIVE (< 200 ng/mL); Benzodiazepine Urine VISTA NEGATIVE (< 200 ng/mL); Cocaine Urine VISTA NEGATIVE (< 300 ng/mL); Ecstacy Urine VISTA NEGATIVE (< 500 ng/mL); Methadone Urine VISTA NEGATIVE (< 300 ng/mL); PCP Urine VISTA NEGATIVE (< 25 ng/mL); THC Urine VISTA POSITIVE (< 50 ng/mL); Vista UDS pH Range 4
[2022-05-12 20:40] LABS: Internal QC Validated? YES +Cl - CLEAR BKGD; Pregnancy, Serum, hCG Quali. NEGATIVE Negative
--- NOTE | 2022-05-12 21:11 | HP.PCM.HOS_ITS ---
HPI - General General Date of Admission: 05/12/22 Date of Service: 05/12/22 Chief Complaint: acute alcohol withdrawal HPI Narrative LLOYD EVANS, is a 46 F with a PMH as outlined who presents via the ED on 05/12/2022 for acute alcohol withdrawal. She said she had been usinig alcohol for ~ 1.5 years since her father . She said she uses alcohol to cope and drinks at least a pint of rum a day. She drinks till she passes out. She also says she has been falling frequently at home, with resultant bruises; She drunk last night till she passed out, and vomited; she says she woke up covered in her own feces. She also used recreational marijuana but denies any other recreational drug use. She however admitted to taking ativan which she said was prescribed, but it didnt show up on her OARRS. Review of systems was otherwise negative. Vitals were BP of 134/65, MO of 97, RR of 16 and temp of 98.2F, with oxygen sats of 97% on room air. CBC showed hb of 12.7 with wbc of 7.6 and platelets of 183. Chemistry was significant for potassium of 3.4 and bilirubin of 1.8 but was otherwise unremarkable. Urine tox was positive for cannabinoids, and serum alcohol level was 6. She is being admitted to be managed for acute alchol withdrawal. [facility] Medical History IBS (irritable bowel syndrome) Home Medications albuterol sulfate 90 mcg/actuation aerosol inhaler (Ventolin HFA) 1 - 2 puff inhalation Q4H PRN PRN Wheezing 06/28/15 [History Last Taken 2 Days Ago ~05/10/22] fluticasone propionate 50 mcg/actuation nasal spray,suspension 1 spray NASAL DAILY PRN Nasal Congestion 07/25/19 [History Last Taken 2 Days Ago ~05/10/22] montelukast 10 mg tablet 10 mg PO DAILY 07/25/19 [History Last Taken 2 Days Ago ~05/10/22] estradiol 0.5 mg tablet 0.5 mg PO DAILY HORMONES 05/12/22 [History Last Taken 2 Days Ago ~05/10/22] lorazepam 1 mg tablet 1 mg PO BID anxiety 05/12/22 [History Last Taken 05/12/22] ondansetron 4 mg disintegrating tablet 4 mg PO Q8H PRN Nausea 05/12/22 [History Last Taken Unknown] pantoprazole 40 mg tablet,delayed release 40 mg PO DAILY GERD 05/12/22 [History Last Taken 2 Days Ago ~05/10/22] progesterone micronized 100 mg capsule 100 mg PO QHS HORMONES 05/12/22 [History Last Taken 2 Days Ago ~05/10/22] topiramate 25 mg tablet 25 mg PO DAILY QUICK 05/12/22 [History Last Taken 2 Days Ago ~05/10/22] trazodone 50 mg tablet 50 mg PO QHS SLEEP 05/12/22 [History Last Taken 2 Days Ago ~05/10/22] Allergy/AdvReac Type Severity Reaction Status Date / Time Penicillins [PCN] Allergy Unknown Verified 05/12/22 18:54 Social History (Updated 05/12/22 @ 19:[address] Benjamin Cuevas, DO) Smoking Status: Former smoker alcohol intake: current alcohol intake frequency: 3 or more drinks per day ROS Constitutional Constitutional: Reports fatigue, malaise and weakness; Denies anorexia, chills or fever(s) Eyes Eyes: Denies change in vision ENT HEENT: Denies dysphagia or headache(s) Cardiovascular Cardiovascular: Denies chest pain, dyspnea on exertion, edema, lightheadedness, orthopnea, palpitations, rapid heart rate or syncope Respiratory/Chest Respiratory/Chest: Denies cough, productive cough, shortness of breath at rest or shortness of breath with exertion Gastrointestinal Gastrointestinal: Reports nausea and vomiting; Denies abdominal pain, constipation or diarrhea Genitourinary Genitourinary: Denies dysuria Musculoskeletal Musculoskeletal: Denies arthralgias or joint pain Neurologic Neurologic: Denies confusion, dizziness, focal weakness, headache(s), numbness, seizures or syncope Psychiatric Psychiatric: Denies anxiety Endocrine Endocrinology: Denies change in body appearance Hematologic/Lymphatic Hematologic/Lymphatic: Denies anemia Vital Signs Vital Signs Vital Signs: 05/12/22 18:54 Temperature 98.2 F Temperature Source Temporal Pulse Rate 97 Respiratory Rate 16 Blood Pressure 134/65 H Blood Pressure Mean 88 Pulse Ox 97 Oxygen Delivery Method Room Air Weight Weight: 128 lb 15.527 oz Body Mass Index (BMI) 22.1 Physical Exam Const alert, oriented x3 and no apparent distress Constitutional Narrative: anxious General Appearance: cooperative HEENT normocephalic, head/scalp atraumatic, hearing grossly normal bilaterally and m oist oral mucous membranes Mouth: oral and palatal mucosa normal Eyes PERRL, EOMs intact bilaterally and conjunctivae normal Neck no lymphadenopathy and supple Resp normal respiratory effort, no retractions, no use of accessory muscles and clear to auscultation bilaterally Cardio regular rate, regular rhythm, S1 normal heart sound, S2 normal heart sound and no murmurs GI normal to inspection, nondistended, normoactive bowel sounds, soft to palpation, non-tender and non-distended Extremity normal to inspection, full ROM and no clubbing, cyanosis or edema Neuro oriented x3, CN's II-XII intact bilaterally, moves all extremities and no focal motor deficits Sensorium / Orientation: awake and alert Motor Exam: strength 5/5 throughout Psych affect normal Mood & Affect: anxious Results Lab / Micro Data Result Diagrams: 05/12/22 19:51 05/12/22 19:51 Labs: Laboratory Results - last 24 hr 05/12/22 19:51: WBC 7.6, RBC 3.75 L, Hgb 12.7, Hct 35.9 L, MCV 95.7, MCH 33.9 H, MCHC 35.4, RDW Std Deviation 43.2, RDW Coeff of Jay 12.4, Plt Count 183, MPV 10.4, Immature Gran % (Auto) 0.100, Neut % (Auto) 62.1, Lymph % (Auto) 28.1, [place] % (Auto) 9.0, Eos % (Auto) 0.3, Baso % (Auto) 0.4, Absolute Neuts (auto) 4.7, Absolute Lymphs (auto) 2.13, Nucleated RBC % 0 05/12/22 19:51: Serum , Qual NEGATIVE 05/12/22 19:51: Sodium 142, Potassium 3.4 L, Chloride 111 H, Carbon Dioxide 23.0, Anion Gap 8, BUN 12, Creatinine 0.78, Estim Creat Clear Calc 79.48, Est GFR (MDRD) Af Amer 103, Est GFR (MDRD) Non-Af 85, BUN/Creatinine Ratio 15.4, Glucose 107 H, Calcium 8.2 L, Total Bilirubin 1.80 H, AST 27, ALT 27, Alkaline Phosphatase 69, Total Protein 6.7, Albumin 3.6, Globulin 3.1, Albumin/Globulin Ratio 1.2 05/12/22 19:51: Ethyl Alcohol 6.0 05/12/22 19:51: Urine Opiates Screen NEGATIVE, Urine Methadone Screen NEGATIVE, Ur Barbiturates Screen NEGATIVE, Ur Phencyclidine Scrn NEGATIVE, Ur Amphetamines Screen NEGATIVE, MDMA (Ecstasy) Screen NEGATIVE, U Benzodiazepines Scrn NEGATIVE, Urine Cocaine Screen NEGATIVE, U Cannabinoids Screen POSITIVE H, Ur Drug Screen Comment Radiology Impression Brain CT 05/12/22 19:39 IMPRESSION: Normal unenhanced CT scan of the brain. Electronically Signed: Fan Mcginnis DO at 20:46 EDT Reading Location ID and State: [address] [place] [address] Tel [phone], Service support , Assessment & Plan Assessment/Plan (1) Alcohol withdrawal: PLAN: Plan #Acute alcohol withdrawal * admit to med surg * start on alcohol withdrawal protocol with phenobarbital * thiamine, multivite and folic acid * monitor CIWA score * #Debility due to frequent falls * CT of the brain done was negative for any acute intracranial pathology * check Vitamin B12 and folate levels * may be due to alcohol abuse * has multiple contusions over her body * PT/OT consult. * Fall precautions * #Hyperbilirubinemia * total bilirubin is 1.8; likely due to alcohol abuse * bilirubin was previously 0.4 * will trend; if it trends upwards further, will get a liver USG * #Hypokalemia: K is 3.2. Will replace and trend DVT prophylaxis: low risk, encourage to ambulate. Charges/Coding Visit Charges Inpatient E&M: 57700 Init Hosp L3
[2022-05-12 21:18] LABS: International Normalized Ratio 1.3; Prothrombin Time (Protime)PT. 15.7 SECONDS (11.7-14.9)
[2022-05-12 21:32] VITALS: BP 142/77; PULSE 75; RESP 18; TEMP 36.9; O2SAT 99
[2022-05-12 22:25] VITALS: BMI 21.9
[2022-05-12 22:38] VITALS: BP 137/55; PULSE 69; RESP 16; TEMP 36.8; O2SAT 99
[2022-05-12] MEDS: traZODone 50 MG Tablet PO (22:52)
[2022-05-12] MEDS: Phenobarbital 32.4 MG Tablet 64.8 MG PO (22:52)
[2022-05-12 22:55] LABS: Vitamin B12 460 pg/mL (211-911)
[2022-05-13 02:32] VITALS: BP 137/93; PULSE 83; RESP 18; TEMP 36.6; O2SAT 99
[2022-05-13] MEDS: Phenobarbital 32.4 MG Tablet 64.8 MG PO ×6 (02:34→22:30)
[2022-05-13] MEDS: hydrOXYzine PAM 25 MG Capsule 50 MG PO ×2 (02:34→06:44)
[2022-05-13 06:39] VITALS: BP 116/61; PULSE 63; RESP 16; TEMP 36.6; O2SAT 99
[2022-05-13] MEDS: 0.9% Saline Lock 10 ML Syringe IV ×2 (06:42→22:29)
[2022-05-13 06:44] LABS: Anion Gap 8 (5-15); BUN 10 mg/dL (7-18); BUN/Creat Ratio 15.2 RATIO (10-20); Calcium,Total 7.8 mg/dL (8.5-10.1); Chloride 110 mmol/L (98-107); Creatinine, Serum 0.66 mg/dL (0.55-1.02); EST Glomerular Filtration Rate 104 mL/min (>60); Est Glom Filt Rate - Afr Amer 126 mL/min (>60); Estimated Creatinine Clearance 93.93 ml/min; Glucose 96 mg/dL (74-106); Potassium 2.8 mmol/L (3.5-5.1); Sodium Level 142 mmol/L (136-145)
--- NOTE | 2022-05-13 07:15 | PCM.PN.HOSP ---
Subjective Subjective Patient is a 46-year-old lady with history of chronic alcohol dependence presented with acute alcohol withdrawal Objective Data Objective Data Vital Signs: Vital Signs Temp Pulse Resp BP Pulse Ox O2 Del Method 97.9 F 63 16 116/61 99 Room Air 05/13/22 06:39 05/13/22 06:39 05/13/22 06:39 05/13/22 06:39 05/13/22 06:39 05/13/22 06:39 Oxygen Delivery Method Room Air Weight: 58.23 kg Body Mass Index (BMI) 21.9 Intake & Output: Intake and Output for Last 24 Hours 05/11/22 05/12/22 05/13/22 23:59 23:59 23:59 Intake Total 250 / 250 200 / 200 Balance 250 / 250 200 / 200 Lab / Micro Data Result Diagrams: 05/12/22 19:51 05/13/22 05:41 Labs: Laboratory Results - last 24 hr 05/12/22 19:51: WBC 7.6, RBC 3.75 L, Hgb 12.7, Hct 35.9 L, MCV 95.7, MCH 33.9 H, MCHC 35.4, RDW Std Deviation 43.2, RDW Coeff of Jay 12.4, Plt Count 183, MPV 10.4, Immature Gran % (Auto) 0.100, Neut % (Auto) 62.1, Lymph % (Auto) 28.1, [place] % (Auto) 9.0, Eos % (Auto) 0.3, Baso % (Auto) 0.4, Absolute Neuts (auto) 4.7, Absolute Lymphs (auto) 2.13, Nucleated RBC % 0 05/12/22 19:51: PT 15.7 H, INR 1.3 05/12/22 19:51: Serum , Qual NEGATIVE 05/12/22 19:51: Sodium 142, Potassium 3.4 L, Chloride 111 H, Carbon Dioxide 23.0, Anion Gap 8, BUN 12, Creatinine 0.78, Estim Creat Clear Calc 79.48, Est GFR (MDRD) Af Amer 103, Est GFR (MDRD) Non-Af 85, BUN/Creatinine Ratio 15.4, Glucose 107 H, Calcium 8.2 L, Total Bilirubin 1.80 H, AST 27, ALT 27, Alkaline Phosphatase 69, Total Protein 6.7, Albumin 3.6, Globulin 3.1, Albumin/Globulin Ratio 1.2 05/12/22 19:51: Ethyl Alcohol 6.0 05/12/22 19:51: Urine Opiates Screen NEGATIVE, Urine Methadone Screen NEGATIVE, Ur Barbiturates Screen NEGATIVE, Ur Phencyclidine Scrn NEGATIVE, Ur Amphetamines Screen NEGATIVE, MDMA (Ecstasy) Screen NEGATIVE, U Benzodiazepines Scrn NEGATIVE, Urine Cocaine Screen NEGATIVE, U Cannabinoids Screen POSITIVE H, Ur Drug Screen Comment 05/12/22 19:51: Vitamin B12 460 05/13/22 05:41: Sodium 142, Potassium 2.8 L, Chloride 110 H, Carbon Dioxide 24.0, Anion Gap 8, BUN 10, Creatinine 0.66, Estim Creat Clear Calc 93.93, Est GFR (MDRD) Af Amer 126, Est GFR (MDRD) Non-Af 104, BUN/Creatinine Ratio 15.2, Glucose 96, Calcium 7.8 L Radiography Diagnostic Testing: Radiology Impression Brain CT 05/12/22 19:39 IMPRESSION: Normal unenhanced CT scan of the brain. Electronically Signed: Fan Mcginnis DO at 20:46 EDT Reading Location ID and State: [address] [place] [address] Tel [phone], Service support , Physical Exam Narrative GENERAL: cooperative HEENT: Atraumatic; EYES; Anicteric, Normal Conjunctiva NECK; supple, normal thyroid, RESPIRATORY: Diminished to auscultation CARDIOVASCULAR: Regular S1 S2, GI: soft, normoactive bowel sounds, : No Renal angle tenderness; EXTREMITIES: No edema, no clubbing, MUSCULOSKELETAL: no muscle wasting NEURO: Awake; no lateralizing signs. SKIN: No Rash PSYCH; Flat affect Assessment & Plan Assessment/Plan (1) Alcohol withdrawal: PLAN: Plan Patient is a 46-year-old lady with history of chronic alcohol dependence presented with acute alcohol withdrawal 1. Acute alcohol withdrawal ? Admitted to regular nursing floor managed with phenobarb taper 2. Physical deconditioning with multiple falls - Requested for PT OT eval and social work supervisor to assist with discharge planning 3. Hyperbilirubinemia ? [place] to be secondary to patient alcohol use monitoring 4. Hypokalemia -Corrected per protocol 5. DVT prophylaxis ? Low risk encouraged early ambulation Charges/Coding Visit Charges Inpatient E&M: 62307 Subs Hosp L2
[2022-05-13] MEDS: Thiamine Hydrochloride 100 MG Tablet PO (08:34)
[2022-05-13] MEDS: Pantoprazole Sodium 40 MG Tablet PO (08:34)
[2022-05-13] MEDS: Folic Acid 1 MG Tablet PO (08:34)
[2022-05-13] MEDS: Potassium Chloride 10mEq/100mL 10 MEQ/100 ML IV.SOLN. 100 MEQ IV BOLUS ×4 (08:34→12:17)
[2022-05-13] MEDS: Montelukast 10 MG Tablet PO (08:34)
[2022-05-13] MEDS: Estradiol 0.5 MG Tablet PO (08:34)
[2022-05-13] MEDS: Topiramate 25 MG Tablet PO (08:34)
[2022-05-13 10:00] VITALS: BP 125/64; PULSE 76; RESP 18; TEMP 36.6; O2SAT 98
--- NOTE | 2022-05-13 11:59 | ADDICTION ---
This screen writer attempted to meet with PT. PT was asleep upon arrival and woke to verbal queing, however, was unable to participate appropriately due to lethargy and confusion. This screen writer will attempt to meet with PT at next visit on 05/14/22.?
--- NOTE | 2022-05-13 13:37 | CHAPLAIN ---
Type of Pastoral Visit _x__ Initial Visit ___ Follow-up Visit ___ On-call Visit ___ General Patient Visit ___ Spiritual Assessment ___ Family Conference ___ Bereavement ___ Rapid Response ___ Code Blue ___ Other (describe below) Pastoral Care Referral From _x__ Patient ___ Family ___ Nurse ___ Physician ___ Stitcher Standard Machine ___ Call Center Team Leader ___ Other (describe below) Sacrament/Intervention _x__ Active listening ___ Anointing ___ Sikh ___ Bereavement ___ Communion ___ Corine exploration ___ ___ Life review _x__ Prayer ___ Reconciliation ___ Sacrament of Sick _x__ Supportive presence ___ Wedding ___ Other (describe below) Pastoral Comments patient just received lunch tray and is awake; pt admits to discomfort from IV and states RN told me it would hurt and it does; offer of support is received, patient states that a prayer would be fine; did not stay long as patient is in discomfort and not focusing well
[2022-05-13 14:00] VITALS: BP 114/61; PULSE 79; RESP 18; TEMP 36.7; O2SAT 99
[2022-05-13] MEDS: Ensure Plus High Protein 120 ML LIQUID PO ×3 (14:33→22:29)
[2022-05-13 18:00] VITALS: BP 123/53; PULSE 84; RESP 18; TEMP 36.6; O2SAT 98
[2022-05-13 22:22] VITALS: BP 125/54; PULSE 82; RESP 16; TEMP 36.8; O2SAT 100
[2022-05-13] MEDS: traZODone 50 MG Tablet PO (22:30)
[2022-05-14 02:38] VITALS: BP 106/52; PULSE 81; RESP 16; TEMP 36.5; O2SAT 100
[2022-05-14] MEDS: Phenobarbital 32.4 MG Tablet 64.8 MG PO ×6 (02:40→21:31)
--- NOTE | 2022-05-14 07:17 | PCM.PN.HOSP ---
Subjective Subjective Patient seen had a relatively uneventful night has tolerated the phenobarb taper well so far Objective Data Objective Data Vital Signs: Vital Signs Temp Pulse Resp BP Pulse Ox O2 Del Method 97.7 F L 81 16 106/52 L 100 Room Air 05/14/22 02:38 05/14/22 02:38 05/14/22 02:38 05/14/22 02:38 05/14/22 02:38 05/14/22 02:38 Oxygen Delivery Method Room Air Weight: 58.23 kg Body Mass Index (BMI) 21.9 Intake & Output: Intake and Output for Last 24 Hours 05/12/22 05/13/22 05/14/22 23:59 23:59 23:59 Intake Total 250 / 250 1000 / 1000 300 / 300 Balance 250 / 250 1000 / 1000 300 / 300 Medical Nutrition Assessment Dietitian: Malnutrition Criteria Met Start: 05/13/22 10:11 Freq: Status: Active Protocol: Document 05/13/22 10:12 RMA (Rec: 05/13/22 10:12 RMA [id number]) Nutrition Malnutrition Evidence of Malnutrition Exists Yes Malnutrition (severe): Social/Behavioral/ Environmental Evidenced By Suboptimal Energy Intake ( Severe),Weight Loss (Severe) Clinical Problem Chronic Disease or Condition Related Malnutrition Etiology Severe protein-calorie malnutrition in the context of social circumstance related to inadequate oral/inadequate energy intake and alcohol abuse Signs/Symptoms as evidenced by ~8-10% wt loss x past 5-6 months and PO meeting less than 50% estimated nutrition needs Status Active Problem Recommendation Dietitian Recommendations/Changes Will continue liberalized Regular diet and 120ml ensure plus high protein 4 times per day w/ medpass as ordered. Adjust ONS as needed. Lab / Micro Data Result Diagrams: 05/12/22 19:51 05/13/22 05:41 Labs: Laboratory Results - last 24 hr 05/13/22 05:41: Magnesium 2.0 Physical Exam Narrative GENERAL: cooperative HEENT: Atraumatic; EYES; Anicteric, Normal Conjunctiva NECK; supple, normal thyroid, RESPIRATORY: Diminished to auscultation CARDIOVASCULAR: Regular S1 S2, GI: soft, normoactive bowel sounds, : No Renal angle tenderness; EXTREMITIES: No edema, no clubbing, MUSCULOSKELETAL: no muscle wasting NEURO: Awake; no lateralizing signs. SKIN: No Rash PSYCH; Flat affect Assessment & Plan Assessment/Plan (1) Alcohol withdrawal: PLAN: Plan Patient is a 46-year-old lady with history of chronic alcohol dependence presented with acute alcohol withdrawal 1. Acute alcohol withdrawal ? Admitted to regular nursing floor managed with phenobarb taper 2. Physical deconditioning with multiple falls - Requested for PT OT eval and social welfare administrator to assist with discharge planning 3. Hyperbilirubinemia ? [place] to be secondary to patient alcohol use monitoring 4. Hypokalemia -Corrected per protocol 5. DVT prophylaxis ? Low risk encouraged early ambulation Charges/Coding Visit Charges Inpatient E&M: 62719 Subs Hosp L2
[2022-05-14] MEDS: Topiramate 25 MG Tablet PO (08:42)
[2022-05-14] MEDS: Pantoprazole Sodium 40 MG Tablet PO (08:42)
[2022-05-14] MEDS: Thiamine Hydrochloride 100 MG Tablet PO (08:42)
[2022-05-14] MEDS: Folic Acid 1 MG Tablet PO (08:42)
[2022-05-14] MEDS: Montelukast 10 MG Tablet PO (08:42)
[2022-05-14] MEDS: Estradiol 0.5 MG Tablet PO (08:42)
[2022-05-14 10:00] VITALS: BP 119/48; PULSE 86; RESP 18; TEMP 36.6; O2SAT 98
--- NOTE | 2022-05-14 12:13 | ADDICTION ---
This screen writer met with PT to conduct ASAM, MSE, AUDIT, DUDIT assessments and to plan for d/c. PT A+Ox4 and participated actively. All assessments completed and placed in PT's chart. PT plans to f[facility]u [facility] treatment services. This worker offered resources based on her listed wants and needs. PT did not indicate a need for transportation post d/c from [facility].
[2022-05-14 14:08] LABS: Folate, Hemolysate Test > 620.0 ng/mL (Not Estab.); Folate, RBC (Hct) Test 36.8 % (34.0-46.6)
[2022-05-14] MEDS: hydrOXYzine PAM 25 MG Capsule 50 MG PO ×2 (14:36→19:33)
[2022-05-14 17:00] VITALS: BP 121/62; PULSE 81; RESP 16; TEMP 37; O2SAT 100
[2022-05-14] MEDS: Gabapentin 300 MG Capsule PO (19:33)
[2022-05-14 21:20] VITALS: BP 115/68; PULSE 84; RESP 18; TEMP 36.6; O2SAT 98
[2022-05-14] MEDS: traZODone 50 MG Tablet PO (21:31)
[2022-05-14] MEDS: Ensure Plus High Protein 120 ML LIQUID PO (21:33)
[2022-05-15 02:25] VITALS: BP 105/58; PULSE 80; RESP 16; TEMP 36.6; O2SAT 98
[2022-05-15] MEDS: Phenobarbital 32.4 MG Tablet 64.8 MG PO ×2 (02:26→06:13)
--- NOTE | 2022-05-15 07:39 | PN.HOSP_ITS ---
Subjective Subjective Patient seen had a relatively uneventful night patient be assessed for possible discharge Objective Data Objective Data Vital Signs: Vital Signs Temp Pulse Resp BP Pulse Ox O2 Del Method 97.8 F 80 16 105/58 L 98 Room Air 05/15/22 02:25 05/15/22 02:25 05/15/22 02:25 05/15/22 02:25 05/15/22 02:25 05/15/22 02:25 Oxygen Delivery Method Room Air Weight: 58.23 kg Body Mass Index (BMI) 21.9 Intake & Output: Intake and Output for Last 24 Hours 05/13/22 05/14/22 05/15/22 23:59 23:59 23:59 Intake Total 1000 / 1000 300 / 300 Balance 1000 / 1000 300 / 300 Medical Nutrition Assessment Dietitian: Malnutrition Criteria Met Start: 05/13/22 10:11 Freq: Status: Active Protocol: Document 05/13/22 10:12 RMA (Rec: 05/13/22 10:12 RMA [id number]) Nutrition Malnutrition Evidence of Malnutrition Exists Yes Malnutrition (severe): Social/Behavioral/ Environmental Evidenced By Suboptimal Energy Intake ( Severe),Weight Loss (Severe) Clinical Problem Chronic Disease or Condition Related Malnutrition Etiology Severe protein-calorie malnutrition in the context of social circumstance related to inadequate oral/inadequate energy intake and alcohol abuse Signs/Symptoms as evidenced by ~8-10% wt loss x past 5-6 months and PO meeting less than 50% estimated nutrition needs Status Active Problem Recommendation Dietitian Recommendations/Changes Will continue liberalized Regular diet and 120ml ensure plus high protein 4 times per day w/ medpass as ordered. Adjust ONS as needed. Lab / Micro Data Result Diagrams: 05/12/22 19:51 05/13/22 05:41 Labs: Laboratory Results - last 24 hr 05/12/22 19:51: RBC Folate Hemolysate > 620.0, RBC Folate > 1685, Hematocrit 36.8 Physical Exam Narrative GENERAL: cooperative HEENT: Atraumatic; EYES; Anicteric, Normal Conjunctiva NECK; supple, normal thyroid, RESPIRATORY: Diminished to auscultation CARDIOVASCULAR: Regular S1 S2, GI: soft, normoactive bowel sounds, : No Renal angle tenderness; EXTREMITIES: No edema, no clubbing, MUSCULOSKELETAL: no muscle wasting NEURO: Awake; no lateralizing signs. SKIN: No Rash PSYCH; Flat affect Assessment & Plan Assessment/Plan (1) Alcohol withdrawal: PLAN: Plan Patient is a 46-year-old lady with history of chronic alcohol dependence presented with acute alcohol withdrawal 1. Acute alcohol withdrawal ? Admitted to regular nursing floor managed with phenobarb taper 2. Physical deconditioning with multiple falls - Requested for PT OT eval and social service assistant to assist with discharge planning 3. Hyperbilirubinemia ? [place] to be secondary to patient alcohol use monitoring 4. Hypokalemia -Corrected per protocol 5. DVT prophylaxis ? Low risk encouraged early ambulation 6. Severe protein-calorie malnutrition ? In the context of social circumstance related to inadequate oral/inadequate energy intake and alcohol abuse as evidenced by ~8-10% wt loss x past 5-6 months and PO meeting less than 50% estimated nutrition needs. Will continue liberalized Regular diet and 120ml ensure plus high protein 4 times per day w/ medpass as ordered. Adjust ONS as needed. Charges/Coding Visit Charges Inpatient E&M: 61139 Subs Hosp L2
[2022-05-15] MEDS: Folic Acid 1 MG Tablet PO (09:06)
[2022-05-15] MEDS: Thiamine Hydrochloride 100 MG Tablet PO (09:06)
[2022-05-15] MEDS: Topiramate 25 MG Tablet PO (09:06)
[2022-05-15] MEDS: Pantoprazole Sodium 40 MG Tablet PO (09:06)
[2022-05-15] MEDS: Montelukast 10 MG Tablet PO (09:06)
[2022-05-15] MEDS: Estradiol 0.5 MG Tablet PO (09:06)
--- NOTE | 2022-05-15 09:29 | DS.PCM_ITS ---
Providers Date of Admission: 05/12/22 Date of Discharge: 05/15/22 Primary Care Physician: Dr. Alon Guerrier, DO Reason For Visit: ACUTE ALCOHOL WITHDRAWL Diagnosis Discharge Diagnosis (1) Alcohol withdrawal: Status: Acute Code(s): F10.939 - Alcohol use, unspecified with withdrawal, unspecified Plan Patient is a 46-year-old lady with history of chronic alcohol dependence presented with acute alcohol withdrawal 1. Acute alcohol withdrawal ? Admitted to regular nursing floor managed with phenobarb taper 2. Physical deconditioning with multiple falls - Requested for PT OT eval and high school social science teacher to assist with discharge planning 3. Hyperbilirubinemia ? [place] to be secondary to patient alcohol use monitoring 4. Hypokalemia -Corrected per protocol 5. DVT prophylaxis ? Low risk encouraged early ambulation 6. Severe protein-calorie malnutrition ? In the context of social circumstance related to inadequate oral/inadequate energy intake and alcohol abuse as evidenced by ~8-10% wt loss x past 5-6 months and PO meeting less than 50% estimated nutrition needs. Will continue liberalized Regular diet and 120ml ensure plus high protein 4 times per day w/ medpass as ordered. Adjust ONS as needed. Medications at Discharge Home Medications albuterol sulfate 90 mcg/actuation aerosol inhaler (Ventolin HFA) 1 - 2 puff inhalation Q4H PRN PRN Wheezing 06/28/15 fluticasone propionate 50 mcg/actuation nasal spray,suspension 1 spray NASAL DAILY PRN Nasal Congestion 07/25/19 montelukast 10 mg tablet 10 mg PO DAILY 07/25/19 estradiol 0.5 mg tablet 0.5 mg PO DAILY HORMONES 05/12/22 ondansetron 4 mg disintegrating tablet 4 mg PO Q8H PRN Nausea 05/12/22 pantoprazole 40 mg tablet,delayed release 40 mg PO DAILY GERD 05/12/22 progesterone micronized 100 mg capsule 100 mg PO QHS HORMONES 05/12/22 topiramate 25 mg tablet 25 mg PO DAILY QUICK 05/12/22 trazodone 50 mg tablet 50 mg PO QHS SLEEP 05/12/22 Hospital Course Summary of Care Provided Minutes Spent on Discharge: 35 Physical Exam Narrative GENERAL: cooperative HEENT: Atraumatic; EYES; Anicteric, Normal Conjunctiva NECK; supple, normal thyroid, RESPIRATORY: Diminished to auscultation CARDIOVASCULAR: Regular S1 S2, GI: soft, normoactive bowel sounds, : No Renal angle tenderness; EXTREMITIES: No edema, no clubbing, MUSCULOSKELETAL: no muscle wasting NEURO: Awake; no lateralizing signs. SKIN: No Rash PSYCH; Flat affect Medical Records Data Medical Nutrition Assessment Dietitian: Malnutrition Criteria Met Start: 05/13/22 10:11 Freq: Status: Active Protocol: Document 05/13/22 10:12 RMA (Rec: 05/13/22 10:12 RMA [id number]) Nutrition Malnutrition Evidence of Malnutrition Exists Yes Malnutrition (severe): Social/Behavioral/ Environmental Evidenced By Suboptimal Energy Intake ( Severe),Weight Loss (Severe) Clinical Problem Chronic Disease or Condition Related Malnutrition Etiology Severe protein-calorie malnutrition in the context of social circumstance related to inadequate oral/inadequate energy intake and alcohol abuse Signs/Symptoms as evidenced by ~8-10% wt loss x past 5-6 months and PO meeting less than 50% estimated nutrition needs Status Active Problem Recommendation Dietitian Recommendations/Changes Will continue liberalized Regular diet and 120ml ensure plus high protein 4 times per day w/ medpass as ordered. Adjust ONS as needed. Weight / BMI Weight Weight: 58.23 kg Body Mass Index (BMI) 21.9 ABG / Lab / Microbiology Data Result Diagrams: 05/12/22 19:51 05/13/22 05:41 Laboratory: Laboratory Results - last 24 hr 05/12/22 19:51: RBC Folate Hemolysate > 620.0, RBC Folate > 1685, Hematocrit 36.8 D/C Instructions Discharge Diet: No restrictions Discharge Activity: Return to Normal Activity Call your doctor if you observe: Fever of 101 or Higher, Shortness of breath, Fainting spells and Chest pain Meaningful Use Info Meaningful Use Diagnoses (Choose all that apply): None applicable Discharge Plan Admission Admit Date/Time: 05/12/22 21:21 Attending Provider: Haroon Mcgregor Primary Care Provider: Alon Guerrier Consulting Providers: Petra Peck Discharge Orders/Prescriptions Prescriptions: Continued albuterol sulfate [Ventolin HFA] 1 INHALER inhaler 1 - 2 puff inhalation Q4H PRN PRN (Reason: Wheezing) montelukast 10 MG tablet 10 mg PO DAILY fluticasone propionate 1 SPRAY spray,suspension 1 spray NASAL DAILY PRN (Reason: Nasal Congestion) trazodone 50 mg Tablet 50 mg PO QHS topiramate 25 mg tablet 25 mg PO DAILY Label Comments: take 1 tablet by mouth twice a day for headache PREVENTION pantoprazole 40 mg tablet,delayed release (DR/EC) 40 mg PO DAILY Label Comments: take 1 tablet by mouth 1/2 HOUR BEFORE BREAKFAST ON EMPTY STOMACH estradiol 0.5 mg tablet 0.5 mg PO DAILY Label Comments: take 1 tablet by mouth once daily ondansetron 4 mg tablet,disintegrating 4 mg PO Q8H PRN (Reason: Nausea) Label Comments: take 1 tablet by mouth every 8 hours if needed for nausea and vomiting progesterone micronized 100 mg capsule 100 mg PO QHS Label Comments: take 1 capsule by mouth at bedtime Discontinued lorazepam 1 mg tablet 1 mg PO BID Referrals / Follow Up: Alon Guerrier DO [Primary Care Provider] - Within 1 Week Disposition Disposition (needs filled in before D/C Order can be placed): Home, Self Care Charges/Coding Visit Charges Inpatient E&M: 71857 Disch Hosp
[2022-05-15 10:00] VITALS: BP 99/74; PULSE 79; RESP 18; TEMP 36.8; O2SAT 100
[2022-05-15 10:04] VITALS: BP 120/51; PULSE 95; RESP 18; TEMP 37; O2SAT 97
--- NOTE | 2022-05-15 11:46 | PHA.DC.MR ---
Pharmacy Service has performed discharge medication reconciliation for this patient. The patient's discharge medication list was reviewed for discrepancies and discrepancies were resolved. Estradiol and progesterone prescribed by Ping Hannah pt filling both, last 05/04/22. Home Medications albuterol sulfate 90 mcg/actuation aerosol inhaler (Ventolin HFA) 1 - 2 puff inhalation Q4H PRN PRN Wheezing 06/28/15 fluticasone propionate 50 mcg/actuation nasal spray,suspension 1 spray NASAL DAILY PRN Nasal Congestion 07/25/19 montelukast 10 mg tablet 10 mg PO DAILY 07/25/19 estradiol 0.5 mg tablet 0.5 mg PO DAILY HORMONES 05/12/22 ondansetron 4 mg disintegrating tablet 4 mg PO Q8H PRN Nausea 05/12/22 pantoprazole 40 mg tablet,delayed release 40 mg PO DAILY GERD 05/12/22 progesterone micronized 100 mg capsule 100 mg PO QHS HORMONES 05/12/22 topiramate 25 mg tablet 25 mg PO DAILY QUICK 05/12/22 trazodone 50 mg tablet 50 mg PO QHS SLEEP 05/12/22
== END 2022-05-15 13:52 | disposition home or self-care (01) | DRG 896 ==
LOC: ED 19:44 → MS3 05-13 07:15
PROVIDERS: Admitting Provider Student in an Organized Health Care Education/Training Program; Emergency Provider Emergency Medicine; PCP Student in an Organized Health Care Education/Training Program; Visit Provider Internal Medicine
DX: F10.239 Alcohol dependence with withdrawal, unspecified (principal); E43 Unspecified severe protein-calorie malnutrition; E80.7 Disorder of bilirubin metabolism, unspecified; E87.6 Hypokalemia; Z87.891 Personal history of nicotine dependence; R53.81 Other malaise; R29.6 Repeated falls; Y90.0 Blood alcohol level of less than 20 mg/100 ml; F12.90 Cannabis use, unspecified, uncomplicated; Z79.899 Other long term (current) drug therapy; Z68.21 Body mass index [BMI] 21.0-21.9, adult
CPT/HCPCS: 36415; 70450; 80048; 80053; 80307; 82077; 82607; 82747; 83735; 84703; 85014; 85025; 85610; 96365; 96366; 97161; 97802; 99221; 99284; 99406; A4216; G0378

== ENCOUNTER 2022-12-20 13:47 | Emergency (ER) | payer SELFPAY ==
[2022-12-20 13:48] VITALS: BP 153/103; PULSE 129; RESP 18; TEMP 35.7; O2SAT 99
--- NOTE | 2022-12-20 14:11 | EX.ED.DYSGE1 ---
HPI <CARLOS Lind - Last Filed: 12/20/22 16:33> History of Present Illness Chief Complaint: General Illness Narrative Narrative: 47-year-old female states she relapsed and started drinking alcohol again a couple months ago. She states she has been drinking the last few days and drank half a bottle of [employer] rum last night. She cannot quantify how much but states she does not typically drink this much so she is worried she has alcohol poisoning. She woke up this morning was not feeling well with nausea. About 1 PM she started to feel shaky and had pain all over. No vomiting. She has had a small cup of tea today. She states she barely ate or drink yesterday. She smokes weed occasionally but denies other drug use. No chest pain or shortness of breath. She does not want to detox from alcohol. She denies drinking daily. [facility] <CARLOS Lind - Last Filed: 12/20/22 16:33> [facility] Medical History (Updated 12/20/22 @ 16:26 by CARLOS Lind) Alcohol abuse Asthma COPD (chronic obstructive pulmonary disease) Depression Former smoker IBS (irritable bowel syndrome) Migraines Substance abuse Home Medications albuterol sulfate 90 mcg/actuation aerosol inhaler (Ventolin HFA) 1 - 2 puff inhalation Q4H PRN PRN Wheezing 06/28/15 [History Last Taken 2 Days Ago ~05/10/22] fluticasone propionate 50 mcg/actuation nasal spray,suspension 1 spray NASAL DAILY PRN Nasal Congestion 07/25/19 [History Last Taken 2 Days Ago ~05/10/22] montelukast 10 mg tablet 10 mg PO DAILY 07/25/19 [History Last Taken 2 Days Ago ~05/10/22] estradiol 0.5 mg tablet 0.5 mg PO DAILY HORMONES 05/12/22 [History Last Taken 2 Days Ago ~05/10/22] ondansetron 4 mg disintegrating tablet 4 mg PO Q8H PRN Nausea 05/12/22 [History Last Taken Unknown] pantoprazole 40 mg tablet,delayed release 40 mg PO DAILY GERD 05/12/22 [History Last Taken 2 Days Ago ~05/10/22] progesterone micronized 100 mg capsule 100 mg PO QHS HORMONES 05/12/22 [History Last Taken 2 Days Ago ~05/10/22] topiramate 25 mg tablet 25 mg PO DAILY QUICK 05/12/22 [History Last Taken 2 Days Ago ~05/10/22] trazodone 50 mg tablet 50 mg PO QHS SLEEP 05/12/22 [History Last Taken 2 Days Ago ~05/10/22] ondansetron 4 mg disintegrating tablet 4 mg PO Q8H PRN PRN Nausea #10 tabs 12/20/22 [Rx Last Taken Unknown] Allergy/AdvReac Type Severity Reaction Status Date / Time Penicillins [PCN] Allergy Unknown Verified 12/20/22 13:50 Surgical History History of cholecystectomy Social History (Updated 05/12/22 @ 19:[address] Benjamin Cuevas DO) Smoking Status: Former smoker alcohol intake: current alcohol intake frequency: 3 or more drinks per day ROS <CARLOS Lind - Last Filed: 12/20/22 16:33> ROS ED ROS Narrative Constitutional: Negative for fever, chills. CVS: Negative for palpitations, chest pain, syncope. Respiratory: Negative for shortness of breath. GI: Positive for nausea. Negative for for abdominal pain, Neuro: Negative for headache. EXAM <CARLOS Lind - Last Filed: 12/20/22 16:33> Physical Exam Narrative Exam Narrative: CONST: Patient appears anxious lying in bed, occasionally having fasciculations. EYES: Normal inspection. ENT: Normal inspection, slightly dry mucous membranes. NECK: Normal inspection. RESP: No respiratory distress, CTAB. CVS: Rapid but regular rhythm, no murmur, no gallop. ABD: Soft and nontender, no guarding or rebound. SKIN: Color normal, no rash, warm, dry, intact. EXTREMITIES: Normal appearance, no pedal edema. NEURO: Oriented x4. PSYCH: Anxious. Const Vital Signs: 12/20/22 13:48 12/20/22 13:53 12/20/22 16:00 Temperature 96.2 F L Temperature Source Temporal Pulse Rate 129 H 78 Respiratory Rate 18 16 Respiratory Effort Normal Respiratory Pattern Normal Blood Pressure 153/103 H 134/78 H Blood Pressure Mean 119 96 Pulse Ox 99 99 Oxygen Delivery Method Room Air Room Air <Dr. Jerry Whitaker DO - Last Filed: 12/20/22 15:52> Physical Exam Const Vital Signs: 12/20/22 13:48 12/20/22 13:53 12/20/22 16:00 Temperature 96.2 F L Temperature Source Temporal Pulse Rate 129 H 78 Respiratory Rate 18 16 Respiratory Effort Normal Respiratory Pattern Normal Blood Pressure 153/103 H 134/78 H Blood Pressure Mean 119 96 Pulse Ox 99 99 Oxygen Delivery Method Room Air Room Air [facility] <CARLOS Lind - Last Filed: 12/20/22 16:33> [facility] Narrative Medical decision making narrative: History gathered from: Patient and significant other Patient has history of alcohol abuse and has had increased drinking over the last few days. She is now feeling nauseated, generally unwell, shaking. She is hypertensive at 153/103, heart rate 129, otherwise normal vital signs. She appears anxious and has occasional fasciculations. No seizure activity. Heart is rapid but regular. Lungs clear. Abdomen soft and nontender. Neurologically intact. She was ordered IV fluids, Ativan, and Zofran while blood work was checked. CBC, CMP, and lipase are within normal limits. Urinalysis and test negative. EKG is sinus rhythm with no acute ischemic changes or ectopy. She was ordered a second liter of IV fluid and phenobarbital and her vital signs have normalized. Patient states she wants to go home. She does not want to be admitted for alcohol detox. I thoroughly discussed the risks of alcohol abuse and alcohol withdrawal and that she cannot stop drinking cold turkey because there is risk of seizures, permanent disability or . Patient expressed understanding. I provided 180 for outpatient follow-up and a Zofran prescription. Differential: Alcohol withdrawal, pancreatitis, transaminitis, acute kidney injury, anemia Lab Data Labs: Laboratory Results - last 24 hr 12/20/22 12/20/22 12/20/22 14:28 14:28 14:28 WBC 8.5 RBC 4.46 Hgb 14.6 Hct 41.7 MCV 93.5 MCH 32.7 H MCHC 35.0 RDW Std Deviation 46.8 H RDW Coeff of Jay 13.8 Plt Count 228 MPV 10.8 Immature Gran % (Auto) 0.400 Neut % (Auto) 67.3 Lymph % (Auto) 27.2 [place] % (Auto) 4.5 Eos % (Auto) 0.1 Baso % (Auto) 0.5 Absolute Neuts (auto) 5.7 Absolute Lymphs (auto) 2.32 Nucleated RBC % 0 Sodium 141 Potassium 3.5 Chloride 111 H Carbon Dioxide 21.0 Anion Gap 9 BUN 11 Creatinine 0.76 Est GFR (MDRD) Af Amer 106 Est GFR (MDRD) Non-Af 88 BUN/Creatinine Ratio 14.5 Glucose 99 Calcium 8.7 Total Bilirubin 0.50 Direct Bilirubin 0.20 AST 27 ALT 30 Alkaline Phosphatase 85 Total Protein 7.2 Albumin 3.9 Globulin 3.3 Lipase 16 Urine Color Urine Clarity Urine pH Ur Specific [place] Urine Protein Urine Glucose (UA) Urine Ketones Urine Occult Blood Urine Nitrite Urine Bilirubin Urine Urobilinogen Ur Leukocyte Esterase Urine RBC Urine WBC Ur Squamous Epith Cells Urine Bacteria Urine Mucus Urine Test 12/20/22 12/20/22 15:29 15:29 WBC RBC Hgb Hct MCV MCH MCHC RDW Std Deviation RDW Coeff of Jay Plt Count MPV Immature Gran % (Auto) Neut % (Auto) Lymph % (Auto) [place] % (Auto) Eos % (Auto) Baso % (Auto) Absolute Neuts (auto) Absolute Lymphs (auto) Nucleated RBC % Sodium Potassium Chloride Carbon Dioxide Anion Gap BUN Creatinine Est GFR (MDRD) Af Amer Est GFR (MDRD) Non-Af BUN/Creatinine Ratio Glucose Calcium Total Bilirubin Direct Bilirubin AST ALT Alkaline Phosphatase Total Protein Albumin Globulin Lipase Urine Color Yellow Urine Clarity Clear Urine pH 6.5 Ur Specific [place] 1.015 Urine Protein 15 H Urine Glucose (UA) Normal Urine Ketones 5 H Urine Occult Blood Negative Urine Nitrite Negative Urine Bilirubin Negative Urine Urobilinogen 1 H Ur Leukocyte Esterase Negative Urine RBC 0 SEEN Urine WBC 0-5 SEEN Ur Squamous Epith Cells 0-5 SEEN Urine Bacteria RARE Urine Mucus 0 SEEN Urine Test Negative EKG Initial EKG: Comments: EKG shows normal sinus rhythm at 97 bpm, left axis deviation, no STEMI <Dr. Jerry Whitaker, DO - Last Filed: 12/20/22 15:52> [facility] Lab Data Attestation: I reviewed the patient's lab results. Lab results narrative: CBC without leukocytosis, severe anemia, no thrombocytopenia. BMP without evidence of significant electrolyte abnormalities, no anion gap, no acute kidney injury. LFTs show no evidence of hepatobiliary pathology. UA without evidence of infection Labs: Laboratory Results - last 24 hr 12/20/22 12/20/22 12/20/22 14:28 14:28 14:28 WBC 8.5 RBC 4.46 Hgb 14.6 Hct 41.7 MCV 93.5 MCH 32.7 H MCHC 35.0 RDW Std Deviation 46.8 H RDW Coeff of Jay 13.8 Plt Count 228 MPV 10.8 Immature Gran % (Auto) 0.400 Neut % (Auto) 67.3 Lymph % (Auto) 27.2 [place] % (Auto) 4.5 Eos % (Auto) 0.1 Baso % (Auto) 0.5 Absolute Neuts (auto) 5.7 Absolute Lymphs (auto) 2.32 Nucleated RBC % 0 Sodium 141 Potassium 3.5 Chloride 111 H Carbon Dioxide 21.0 Anion Gap 9 BUN 11 Creatinine 0.76 Est GFR (MDRD) Af Amer 106 Est GFR (MDRD) Non-Af 88 BUN/Creatinine Ratio 14.5 Glucose 99 Calcium 8.7 Total Bilirubin 0.50 Direct Bilirubin 0.20 AST 27 ALT 30 Alkaline Phosphatase 85 Total Protein 7.2 Albumin 3.9 Globulin 3.3 Lipase 16 Urine Color Urine Clarity Urine pH Ur Specific [place] Urine Protein Urine Glucose (UA) Urine Ketones Urine Occult Blood Urine Nitrite Urine Bilirubin Urine Urobilinogen Ur Leukocyte Esterase Urine RBC Urine WBC Ur Squamous Epith Cells Urine Bacteria Urine Mucus Urine Test 12/20/22 12/20/22 15:29 15:29 WBC RBC Hgb Hct MCV MCH MCHC RDW Std Deviation RDW Coeff of Jay Plt Count MPV Immature Gran % (Auto) Neut % (Auto) Lymph % (Auto) [place] % (Auto) Eos % (Auto) Baso % (Auto) Absolute Neuts (auto) Absolute Lymphs (auto) Nucleated RBC % Sodium Potassium Chloride Carbon Dioxide Anion Gap BUN Creatinine Est GFR (MDRD) Af Amer Est GFR (MDRD) Non-Af BUN/Creatinine Ratio Glucose Calcium Total Bilirubin Direct Bilirubin AST ALT Alkaline Phosphatase Total Protein Albumin Globulin Lipase Urine Color Yellow Urine Clarity Clear Urine pH 6.5 Ur Specific [place] 1.015 Urine Protein 15 H Urine Glucose (UA) Normal Urine Ketones 5 H Urine Occult Blood Negative Urine Nitrite Negative Urine Bilirubin Negative Urine Urobilinogen 1 H Ur Leukocyte Esterase Negative Urine RBC 0 SEEN Urine WBC 0-5 SEEN Ur Squamous Epith Cells 0-5 SEEN Urine Bacteria RARE Urine Mucus 0 SEEN Urine Test Negative EKG Initial EKG: Attestation: I personally reviewed and interpreted this EKG as follows: Comments: EKG shows normal sinus rhythm, left axis deviation, no STEMI Treatment and Re-Evaluation :: ED attending note: I evaluated the patient in conjunction with the LISHA. I agree with his/her statements and above findings. I have personally performed a face to face assessment of the patient and have reviewed the LISHA Note. I performed a substantive portion of the visit including all aspects of the following. I personally saw the patient performed chart review, physical exam, reviewed labs, imaging (if obtained), and formulated a treatment and management plan. Exam: Nursing triage notes reviewed, Vital signs reviewed Constitutional: please see mdm HENT: MMM Eyes: Pupils equal round and reactive to light, Extraocular muscles intact Neck: No stridor, no JVD, full neck ROM Lungs: Clear to auscultation, No wheezing or rales. No increased work of breathing, no conversational dyspnea, no accessory muscle use, no nasal flaring. No respiratory distress noted Heart: Regular rate and rhythm, No murmurs, No rubs and No gallops, 2+ distal pulses (radial, femoral, posterior tibial) in all extremities Abdomen: Soft, there is no tenderness, rigidity, rebound or guarding, no obvious peritoneal signs, no palpable pulsatile abdominal masses, no auscultated abdominal bruit : No CVAT Extremities: No edema Neuro: Alert and oriented x3, neuro exam at baseline, cranial nerves II through XII are intact. No pain with extraocular muscle movement. There is negative test of skew. Normal speech. 5 of 5 strength in upper and lower extremities in flexion extension. Intact sensation to light touch in upper and lower extremity dermatomes. No truncal or extremity ataxia. No dysdiadochokinesia. Normal gait. 2+ reflexes. No meningeal signs. Negative Babinski. NIH of 0. Skin: No rash or lesions noted Psych: Patient bit anxious, tremulous MDM/plan: Chief Complaint: Heavy drinking, generalized fatigue illness nausea External records reviewed: History of EtOH abuse I considered the following differential diagnosis: Alcohol withdrawal, dehydration, pancreatitis, electrolyte abnormality. Initial vital signs are consistent with likely alcohol withdrawal. She was given Ativan, phenobarbital, normal saline and Zofran. Labs were checked. If labs are unremarkable we will offer the patient mission for likely alcohol withdrawal. We will determine final disposition based on shared decision-making, vital sign reassessment, repeat evaluation and symptomatology. Factors affecting care: History of alcohol abuse Social determinants of health: Alcohol abuse History obtained from others: The patient significant other Shared decision making: I will have a discussion with the patient and or visitors regarding risk/benefits of further testing or admission. They will be made aware of of the risk/benefits inherent in this decision they will be given the opportunity to voice understanding. Consults: None Discharge Plan Triage Chief Complaint: General Illness ED Midlevel Provider: Love Haney ED Provider: Jerry Whitaker Dx/Rx/DC Orders Clinical Impression: Alcohol withdrawal Instructions: Alcohol Withdrawal: What to Expect Prescriptions: New ondansetron 4 mg tablet,disintegrating 4 mg PO Q8H PRN PRN (Reason: Nausea) Qty: 10 0RF No Action albuterol sulfate [Ventolin HFA] 1 INHALER inhaler 1 - 2 puff inhalation Q4H PRN PRN (Reason: Wheezing) montelukast 10 MG tablet 10 mg PO DAILY fluticasone propionate 1 SPRAY spray,suspension 1 spray NASAL DAILY PRN (Reason: Nasal Congestion) trazodone 50 mg Tablet 50 mg PO QHS topiramate 25 mg tablet 25 mg PO DAILY Label Comments: take 1 tablet by mouth twice a day for headache PREVENTION pantoprazole 40 mg tablet,delayed release (DR/EC) 40 mg PO DAILY Label Comments: take 1 tablet by mouth 1/2 HOUR BEFORE BREAKFAST ON EMPTY STOMACH estradiol 0.5 mg tablet 0.5 mg PO DAILY Label Comments: take 1 tablet by mouth once daily ondansetron 4 mg tablet,disintegrating 4 mg PO Q8H PRN (Reason: Nausea) Label Comments: take 1 tablet by mouth every 8 hours if needed for nausea and vomiting progesterone micronized 100 mg capsule 100 mg PO QHS Label Comments: take 1 capsule by mouth at bedtime Primary Care Provider: Alon Guerrier Referrals: Alon Guerrier DO [Primary Care Provider] - [facility] [Non-Staff] - Disposition Disposition: Home, Self Care
[2022-12-20] MEDS: LORazepam 2 MG/ML Syringe 1 MG IV (14:25)
[2022-12-20] MEDS: 0.9% Normal Saline 1,000 ML 999 ML IV (14:25)
[2022-12-20] MEDS: Ondansetron 4 MG/2 ML Vial IV (14:25)
[2022-12-20 14:51] LABS: Anion Gap 9 (5-15); BUN 11 mg/dL (7-18); BUN/Creat Ratio 14.5 RATIO (10-20); Calcium,Total 8.7 mg/dL (8.5-10.1); Chloride 111 mmol/L (98-107); Creatinine, Serum 0.76 mg/dL (0.55-1.02); EST Glomerular Filtration Rate 88 mL/min (>60); Est Glom Filt Rate - Afr Amer 106 mL/min (>60); Glucose 99 mg/dL (74-106); Potassium 3.5 mmol/L (3.5-5.1); Sodium Level 141 mmol/L (136-145)
--- NOTE | 2022-12-20 15:06 | EKG12_ITS ---
Test Reason : GENERAL Blood Pressure : / mmHG Vent. Rate : 097 BPM Atrial Rate : 097 BPM P-R Int : 122 ms QRS Dur : 112 ms QT Int : 372 ms P-R-T Axes : 073 -13 073 degrees QTc Int : 472 ms Normal sinus rhythm Septal infarct , age undetermined Abnormal ECG Confirmed by MADHAVI THACKER ([id number]), newspaper copy editor HUNG HENLEY ([id number]) on 12/23/2022 1:10:23 PM Referred By: Confirmed By:MADHAVI THACKER
[2022-12-20 15:15] LABS: Absolute Lymphocyte Count 2.32 X10^3/uL (0.83-4.51); Absolute Neutrophil Count 5.7 X10^3/uL (2.0-7.7); Basophil# 0.04 X10^3/uL; Basophil% 0.5 % (0-1); Eosinophil# 0.01 X10^3/uL; Eosinophils% 0.1 % (0-5); Hematocrit 41.7 % (37-47); Hemoglobin 14.6 g/dL (12.0-15.0); Lymphocyte # 2.32 X10^3/ul (0.83-4.51); Lymphocyte % 27.2 % (19-41); Mean Corpuscular Hgb 32.7 pg (27.0-32.0); Mean Corpuscular Volume 93.5 fL (81-99); Mean Platelet Vol. 10.8 fl (6.2-12.0); Monocyte# 0.38 X10^3/uL; Monocyte% 4.5 % (0-10); NRBC Flagged by Analyzer 0 % (0-5); Neutrophil # 5.74 X10^3/uL (2.7-7.7); Neutrophil % 67.3 % (47-70); Platelet Count 228 K/mm3 (150-450); RBC Distribution Width CV 13.8 % (11.6-14.6); RBC Distribution Width SD 46.8 fl (35.1-43.9); Red Blood Count 4.46 M/mm3 (4.2-5.4); White Blood Count 8.5 K/mm3 (4.4-11.0)
[2022-12-20 15:30] LABS: AST(SGOT) 27 U/L (15-37); Alanine Aminotransfer ALT/SGPT 30 U/L (13-56); Albumin, Serum 3.9 g/dL (3.2-5.0); Alkaline Phosphatase 85 U/L (45-117); Globulin 3.3 g/dL (2.2-4.2); Lipase 16 U/L (13-75); Protein, Total 7.2 g/dL (6.4-8.2)
[2022-12-20 15:36] LABS: Mucous, Urine 0 SEEN /hpf (<or=2+); Red Blood Cells-Urine 0 SEEN /hpf (0-5)
[2022-12-20 15:37] LABS: Color, Urine Yellow (Yellow); Glucose, Dipstick Normal (Normal); Ketone-Dipstick 5 mg/dl (Negative); Leukocyte Esterase-Dipstick Negative /ul (Negative); Nitrite-Dipstick Negative (Negative); Occult Blood-Urine Negative /ul (Negative); Protein-Dipstick 15 mg/dl (Negative); Specific Gravity, Urine 1.015 (1.002-1.030); Urine Bilirubin Dipstick Negative (Negative); Urine Clarity Clear (Clear); Urine Urobilinogen 1 mg/dl (Normal); Urine pH 6.5 (5.0 - 8.0)
[2022-12-20 15:39] VITALS: BMI 20.2
[2022-12-20] MEDS: Phenobarbital 32.4 MG Tablet 64.8 MG PO (15:40)
[2022-12-20 15:50] LABS: Bacteria RARE /hpf (None Seen); Squamous Epithelial Cells - UA 0-5 SEEN /hpf (5-10); White Blood Cells 0-5 SEEN /hpf (0-5)
[2022-12-20 16:00] VITALS: BP 134/78; PULSE 78; RESP 16; O2SAT 99
[2022-12-20 16:14] LABS: Internal QC Validated? YES +Cl - CLEAR BKGD; Pregnancy, Urine Negative Negative
== END 2022-12-20 16:37 | disposition home or self-care (01) ==
PROVIDERS: Physician Assistant; Emergency Provider Emergency Medicine; PCP Student in an Organized Health Care Education/Training Program; Visit Provider Emergency Medicine
DX: F10.239 Alcohol dependence with withdrawal, unspecified (principal); J44.9 Chronic obstructive pulmonary disease, unspecified; R53.83 Other fatigue; Z87.891 Personal history of nicotine dependence; Y90.9 Presence of alcohol in blood, level not specified
CPT/HCPCS: 80048; 80076; 81001; 81025; 83690; 85025; 93005; 99283; J2405

== ENCOUNTER 2023-03-28 20:19 | Emergency (ER) | payer OTHER, SELFPAY ==
[2023-03-28 20:19] VITALS: BP 153/99; PULSE 126; RESP 19; TEMP 36.5; O2SAT 97
--- NOTE | 2023-03-28 20:24 | ED.RN ---
PT STATING IN TRIAGE I SHOULD JUST BE BECAUSE NO ONE CARES
--- NOTE | 2023-03-28 20:39 | EX.ED.VIS.PS ---
HPI HPI - Psych History of Present Illness Chief Complaint: Suicidal Informant: patient Narrative Narrative: Suicidal thoughts, had threatened to kill herself with a gun earlier to several family members. Intoxicated and has been drinking heavily since last night, around 24 hours or so. She does not usually drink heavily every day. Recently prescribed trazodone, patient's brother states that her boyfriend told him that she was abusing them; to him that means she was probably snorting them because she has a history of methamphetamine abuse. Patient is denying all this now, upon coming here with family and police she was hysterical, crying, and combative but not to the point of needing restraint. She does not have any acute illness right now, she states she has asthma/COPD and is always having a cough and shortness of breath to some degree but no worse than usual from what I can tell, history is limited because she is grossly intoxicated. She also states she is undergoing some type of rheumatologic work-up, but the only symptoms I can get from her is that she had a 40 pound weight loss. [facility] Medical History Alcohol abuse Asthma COPD (chronic obstructive pulmonary disease) Depression Former smoker IBS (irritable bowel syndrome) Migraines Substance abuse Home Medications albuterol sulfate 90 mcg/actuation aerosol inhaler (Ventolin HFA) 1 - 2 puff inhalation Q4H PRN PRN Wheezing 06/28/15 [History Last Taken 2 Days Ago ~05/10/22] fluticasone propionate 50 mcg/actuation nasal spray,suspension 1 spray NASAL DAILY PRN Nasal Congestion 07/25/19 [History Last Taken 2 Days Ago ~05/10/22] montelukast 10 mg tablet 10 mg PO DAILY 07/25/19 [History Last Taken 2 Days Ago ~05/10/22] estradiol 0.5 mg tablet 0.5 mg PO DAILY HORMONES 05/12/22 [History Last Taken 2 Days Ago ~05/10/22] ondansetron 4 mg disintegrating tablet 4 mg PO Q8H PRN Nausea 05/12/22 [History Last Taken Unknown] pantoprazole 40 mg tablet,delayed release 40 mg PO DAILY GERD 05/12/22 [History Last Taken 2 Days Ago ~05/10/22] progesterone micronized 100 mg capsule 100 mg PO QHS HORMONES 05/12/22 [History Last Taken 2 Days Ago ~05/10/22] topiramate 25 mg tablet 25 mg PO DAILY QUICK 05/12/22 [History Last Taken 2 Days Ago ~05/10/22] trazodone 50 mg tablet 50 mg PO QHS SLEEP 05/12/22 [History Last Taken 2 Days Ago ~05/10/22] ondansetron 4 mg disintegrating tablet 4 mg PO Q8H PRN PRN Nausea #10 tabs 12/20/22 [Rx Last Taken Unknown] Allergy/AdvReac Type Severity Reaction Status Date / Time Penicillins [PCN] Allergy Unknown Verified 03/28/23 20:23 Surgical History History of cholecystectomy Social History Smoking Status: Current some day smoker tobacco type: cigarettes alcohol intake: current alcohol intake frequency: 3 or more drinks per day ROS ROS ED Constitutional Constitutional ED: Reports weight loss; Denies chills or fever(s) Eyes Eyes: Denies change in vision or diplopia ENT ENT ED: Denies rhinorrhea or sore throat Cardiovascular Cardiovascular: Denies chest pain or palpitations Respiratory/Chest Respiratory/Chest: Reports cough and dyspnea Gastrointestinal Gastrointestinal: Denies abdominal pain, diarrhea, nausea or vomiting Genitourinary Genitourinary ED: Denies dysuria or hematuria Musculoskeletal Musculoskeletal: Denies back pain or neck pain Integumentary Denies abscess or rash Neurologic Neurologic: Denies headache(s), paresthesias or weakness Psychiatric Psychiatric: Reports anxiety, depression, suicidal ideation and suicidal thoughts; Denies homicidal ideation EXAM Physical Exam Const Vital Signs: 03/28/23 20:19 03/28/23 20:48 03/28/23 22:00 Temperature 97.7 F L Temperature Source Temporal Pulse Rate 126 H 88 Respiratory Rate 19 H 16 Blood Pressure 153/99 H Blood Pressure Mean 117 Pulse Ox 97 98 98 Oxygen Delivery Method Room Air Room Air Room Air Positive well nourished and well developed General Appearance ED: well developed and NAD HEENT Reports moist mucous membranes normocephalic and atraumatic Eyes PERRL and EOMs intact bilaterally General Eye ED: Negative for scleral icterus Neck no lymphadenopathy and supple Resp normal respiratory effort and clear to auscultation bilaterally Cardio no murmurs Rate: regular rate and tachycardic Rhythm: regular rhythm GI non-tender and non-distended Auscultation: normoactive bowel sounds Palpation: soft Back/Spine no CVA tenderness and normal ROM Extremity normal to inspection General Extremety ED: Negative for edema General Extremity: Negative for edema Neuro oriented x3, CN's II-XII intact bilaterally, no sensory deficits noted and gait normal Sensorium / Orientation: alert Motor Exam: strength 5/5 throughout Psych cooperative and denies homicidal ideation Activity / Motor Behavior: psychomotor agitation Speech: loud Mood & Affect: depressed, tearful and labile affect Thought Process: tangential Thought Content: suicidality Skin Lesions: no lesions Rashes: no rashes MDM MDM MDM Narrative Medical decision making narrative: Patient grossly intoxicated and agitated. Labs and alcohol, toxicology all noted. Her sodium and chloride are a little high, could be indicating some mild dehydration due to diuresis from alcohol. Other than the alcohol she is medically cleared. She is wanting something for a headache. Since she was tachycardic we gave her a liter of IV fluids and Toradol which helped, she was amenable to that, this brought her heart rate down to 88 and she was feeling much better. She will be monitored until the morning when she will be likely closer to sober and then will be evaluated by crisis afterwards. Lab Data Attestation: I reviewed the patient's lab results. Labs: Laboratory Results - last 24 hr 03/28/23 20:52 WBC 9.8 RBC 4.30 Hgb 14.7 Hct 41.1 MCV 95.6 MCH 34.2 H MCHC 35.8 RDW Std Deviation 45.7 H RDW Coeff of Jay 12.9 Plt Count 287 MPV 10.2 Immature Gran % (Auto) 0.300 Neut % (Auto) 41.9 L Lymph % (Auto) 52.1 H [place] % (Auto) 4.4 Eos % (Auto) 0.7 Baso % (Auto) 0.6 Absolute Neuts (auto) 4.1 Absolute Lymphs (auto) 5.12 H Nucleated RBC % 0 Differential Comment SCANNED Sodium 146 H Potassium 3.6 Chloride 118 H Carbon Dioxide 21.0 Anion Gap 7 BUN 8 Creatinine 0.73 Est GFR (MDRD) Af Amer 110 Est GFR (MDRD) Non-Af 91 BUN/Creatinine Ratio 10.9 Glucose 103 Calcium 8.1 L Total Bilirubin 0.30 AST 16 ALT 25 Alkaline Phosphatase 76 Total Protein 7.7 Albumin 3.9 Globulin 3.8 Albumin/Globulin Ratio 1.0 Serum , Qual NEGATIVE Urine Opiates Screen NEGATIVE Urine Methadone Screen NEGATIVE Ur Barbiturates Screen NEGATIVE Ur Phencyclidine Scrn NEGATIVE Ur Amphetamines Screen NEGATIVE MDMA (Ecstasy) Screen NEGATIVE U Benzodiazepines Scrn NEGATIVE Urine Cocaine Screen NEGATIVE U Cannabinoids Screen POSITIVE H Ur Drug Screen Comment Ethyl Alcohol 362.0 H* Radiography Diagnostic Testing: Clinical Impression(s) from Imaging Studies Chest X-Ray 03/28/23 20:50 IMPRESSION: Normal x-ray examination of the chest. 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 Discharge Plan Triage Chief Complaint: Suicidal ED Provider: Dany Correa Dx/Rx/DC Orders Clinical Impression: Suicidal ideation, Alcohol intoxication Prescriptions: No Action albuterol sulfate [Ventolin HFA] 1 INHALER inhaler 1 - 2 puff inhalation Q4H PRN PRN (Reason: Wheezing) montelukast 10 MG tablet 10 mg PO DAILY fluticasone propionate 1 SPRAY spray,suspension 1 spray NASAL DAILY PRN (Reason: Nasal Congestion) trazodone 50 mg Tablet 50 mg PO QHS topiramate 25 mg tablet 25 mg PO DAILY Patient Comments: take 1 tablet by mouth twice a day for headache PREVENTION pantoprazole 40 mg tablet,delayed release (DR/EC) 40 mg PO DAILY Patient Comments: take 1 tablet by mouth 1/2 HOUR BEFORE BREAKFAST ON EMPTY STOMACH estradiol 0.5 mg tablet 0.5 mg PO DAILY Patient Comments: take 1 tablet by mouth once daily ondansetron 4 mg tablet,disintegrating 4 mg PO Q8H PRN (Reason: Nausea) Patient Comments: take 1 tablet by mouth every 8 hours if needed for nausea and vomiting progesterone micronized 100 mg capsule 100 mg PO QHS Patient Comments: take 1 capsule by mouth at bedtime ondansetron 4 mg tablet,disintegrating 4 mg PO Q8H PRN PRN (Reason: Nausea) Qty: 10 0RF Primary Care Provider: Alon Guerrier Referrals: Alon Guerrier, [Primary Care Provider] -
[2023-03-28 20:48] VITALS: O2SAT 98
--- NOTE | 2023-03-28 20:50 | RAD_ITS ---
STUDY: X-RAY CHEST REASON FOR EXAM: Female, 47 years old. sob, copd TECHNIQUE: Single AP portable view of the chest. COMPARISON: 06/12/2016 FINDINGS: The lungs are clear and expanded. There is no demonstrated pleural abnormality. Normal size heart. Normal mediastinum and noreen. Normal visualized pulmonary arteries. Normal visualized aortic arch and descending thoracic aorta. Normal visualized thoracic spine. Normal visualized ribs, clavicles, and shoulders. There is no demonstrated abnormality of the visualized soft tissue structures of the upper abdomen. RAD/Chest 1 View (Portable) IMPRESSION: Normal x-ray examination of the chest. Electronically Signed: Mervin Titus MD at 21:27 EDT ,
[2023-03-28 21:00] LABS: Absolute Lymphocyte Count 5.12 X10^3/uL (0.83-4.51); Absolute Neutrophil Count 4.1 X10^3/uL (2.0-7.7); Basophil# 0.06 X10^3/uL; Basophil% 0.6 % (0-1); Eosinophil# 0.07 X10^3/uL; Eosinophils% 0.7 % (0-5); Hematocrit 41.1 % (37-47); Hemoglobin 14.7 g/dL (12.0-15.0); Lymphocyte # 5.12 X10^3/ul (0.83-4.51); Lymphocyte % 52.1 % (19-41); Mean Corp Hgb Conc 35.8 g/dL (32-36); Mean Corpuscular Hgb 34.2 pg (27.0-32.0); Mean Corpuscular Volume 95.6 fL (81-99); Mean Platelet Vol. 10.2 fl (6.2-12.0); Monocyte# 0.43 X10^3/uL; Monocyte% 4.4 % (0-10); NRBC Flagged by Analyzer 0 % (0-5); Neutrophil # 4.12 X10^3/uL (2.7-7.7); Neutrophil % 41.9 % (47-70); POSITIVE DIFFERENTIAL YES; Platelet Count 287 K/mm3 (150-450); RBC Distribution Width CV 12.9 % (11.6-14.6); RBC Distribution Width SD 45.7 fl (35.1-43.9); White Blood Count 9.8 K/mm3 (4.4-11.0)
[2023-03-28 21:04] LABS: Differential Indicated SCAN CRITERIA MET
[2023-03-28 21:19] LABS: AST(SGOT) 16 U/L (15-37); Alanine Aminotransfer ALT/SGPT 25 U/L (13-56); Albumin, Serum 3.9 g/dL (3.2-5.0); Alkaline Phosphatase 76 U/L (45-117); Anion Gap 7 (5-15); BUN 8 mg/dL (7-18); BUN/Creat Ratio 10.9 RATIO (10-20); Calcium,Total 8.1 mg/dL (8.5-10.1); Chloride 118 mmol/L (98-107); Creatinine, Serum 0.73 mg/dL (0.55-1.02); EST Glomerular Filtration Rate 91 mL/min (>60); Est Glom Filt Rate - Afr Amer 110 mL/min (>60); Globulin 3.8 g/dL (2.2-4.2); Glucose 103 mg/dL (74-106); Potassium 3.6 mmol/L (3.5-5.1); Protein, Total 7.7 g/dL (6.4-8.2); Sodium Level 146 mmol/L (136-145)
[2023-03-28 21:22] LABS: Amphetamine Urine VISTA NEGATIVE (<1000 ng/mL); Barbiturate Urine VISTA NEGATIVE (< 200 ng/mL); Benzodiazepine Urine VISTA NEGATIVE (< 200 ng/mL); Cocaine Urine VISTA NEGATIVE (< 300 ng/mL); Ecstacy Urine VISTA NEGATIVE (< 500 ng/mL); Methadone Urine VISTA NEGATIVE (< 300 ng/mL); PCP Urine VISTA NEGATIVE (< 25 ng/mL); THC Urine VISTA POSITIVE (< 50 ng/mL); Vista UDS pH Range 6
[2023-03-28 21:26] LABS: Internal QC Validated? YES +Cl - CLEAR BKGD; Pregnancy, Serum, hCG Quali. NEGATIVE Negative
[2023-03-28 21:39] LABS: Differential Comment SCANNED
[2023-03-28] MEDS: 0.9% Normal Saline 1,000 ML 999 ML IV (21:54)
[2023-03-28] MEDS: Ketorolac 30 MG/ML Syringe IV (21:55)
[2023-03-28 21:57] VITALS: BMI 20.3
[2023-03-28 22:00] VITALS: PULSE 88; RESP 16; O2SAT 98
[2023-03-28 23:00] VITALS: PULSE 100; RESP 16; O2SAT 97
[2023-03-29] VITALS (11 sets, daily range): BP systolic 122–154; BP diastolic 64–81; PULSE 64–102; RESP 14–20; TEMP 36.6; O2SAT 98
[2023-03-29] MEDS: Acetaminophen 500 MG Tablet 1000 MG PO (05:48)
[2023-03-29] MEDS: LORazepam 1 MG Tablet PO (08:52)
--- NOTE | 2023-03-29 08:58 | ED.RN ---
per patient okay to give information to brother Dilip at [phone]
[2023-03-29 13:29] LABS: Alcohol, Blood (Medical)-Serum < 3.0 mg/dL
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
--- NOTE | 2023-03-29 19:30 | CM.ED ---
Social Work SW referred patient to [facility] for inpatient detox and mental health services. Pt willing to detox but mental health concerns indicated patient needs dual diagnosis. [facility] completed a brief phone assessment screening with patient. [facility] nursing care attendant called to inquire if patient has current suicidal plan or intent as they do not do suicidal precautions while detoxing. Pt screened and denies any SI/intent/plan. Pt's SI/plan/intent is present when intoxicated and patient does not recall these threats. As patient is a danger to self while intoxicated, dual dx most appropriate. Pt accepted to [facility] which has their own transportation they are sending for the patient. Pt will have the opportunity to stay residentially for continued mental health and substance use treatment if she chooses post-detox. Pt cannot be mandated to stay in residential treatment but option was explained and patient is willing to consider longer term rehab. Sabrina Wilson CAPITAL MARKETS SPECIALIST, FOOD SERVICE REPRESENTATIVE
== END 2023-03-29 20:41 ==
LOC: ED 21:10
PROVIDERS: Emergency Medicine; Emergency Provider Emergency Medicine; PCP Student in an Organized Health Care Education/Training Program; Visit Provider Emergency Medicine
DX: R45.851 Suicidal ideations (principal); J44.9 Chronic obstructive pulmonary disease, unspecified; F10.129 Alcohol abuse with intoxication, unspecified; Z79.899 Other long term (current) drug therapy; G43.909 Migraine, unspecified, not intractable, without status migrainosus; Z90.49 Acquired absence of other specified parts of digestive tract; F17.210 Nicotine dependence, cigarettes, uncomplicated
CPT/HCPCS: 71045; 80053; 80307; 82077; 84703; 85025; 87811; 99284; J7030; A4216

== ENCOUNTER 2023-07-19 11:17 | Emergency (ER) | payer OTHER, SELFPAY ==
[2023-07-19 11:18] VITALS: BP 132/66; BP 144/91; PULSE 101; PULSE 89; RESP 16; RESP 18; TEMP 36.7; TEMP 36.8; O2SAT 97; O2SAT 99
[2023-07-19 11:20] VITALS: BMI 22.3
[2023-07-19] MEDS: 0.9% Normal Saline (1000mL) 1,000 ML 999 ML IV (12:00)
[2023-07-19 12:18] VITALS: BP 144/91; PULSE 89; RESP 16; TEMP 36.3; O2SAT 97
--- NOTE | 2023-07-19 12:18 | EX.ED.DYSGE1 ---
HPI <CARLOS Lind - Last Filed: 07/19/23 15:25> History of Present Illness Chief Complaint: ETOH Intox Narrative Narrative: 48-year-old female relapsed after 3 months and drank half a bottle of [employer] [place]oudhary last night. She did this because it was the anniversary of her dad's . She has a headache, dry heaving, and generalized abdominal pain. Normal bladder and bowel movements. She took Aleve but it did not help the headache. She states she is here to get her symptoms treated and then would like to go home. She does not want alcohol detox. PFS <CARLOS Lind - Last Filed: 07/19/23 15:25> [facility] Medical History Alcohol abuse Asthma COPD (chronic obstructive pulmonary disease) Depression Former smoker IBS (irritable bowel syndrome) Migraines Substance abuse Home Medications albuterol sulfate 90 mcg/actuation aerosol inhaler (Ventolin HFA) 1 - 2 puff inhalation Q4H PRN PRN Wheezing 06/28/15 [History Last Taken 2 Days Ago ~05/10/22] fluticasone propionate 50 mcg/actuation nasal spray,suspension 1 spray NASAL DAILY PRN Nasal Congestion 07/25/19 [History Last Taken 2 Days Ago ~05/10/22] montelukast 10 mg tablet 10 mg PO DAILY 07/25/19 [History Last Taken 07/18/23] estradiol 0.5 mg tablet 0.5 mg PO DAILY HORMONES 05/12/22 [History Last Taken 07/18/23] ondansetron 4 mg disintegrating tablet 4 mg PO Q8H PRN Nausea 05/12/22 [History Last Taken Unknown] pantoprazole 40 mg tablet,delayed release 40 mg PO DAILY GERD 05/12/22 [History Last Taken 07/18/23] progesterone micronized 100 mg capsule 100 mg PO QHS HORMONES 05/12/22 [History Last Taken 07/18/23] topiramate 25 mg tablet 25 mg PO DAILY QUICK 05/12/22 [History Last Taken 07/18/23] trazodone 50 mg tablet 50 mg PO QHS SLEEP 05/12/22 [History Last Taken 07/18/23] ondansetron 4 mg disintegrating tablet 4 mg PO Q8H PRN PRN Nausea #10 tabs 07/19/23 [Rx Last Taken Unknown] Allergy/AdvReac Type Severity Reaction Status Date / Time Penicillins [PCN] Allergy Unknown Verified 07/19/23 11:18 Surgical History History of cholecystectomy Social History Smoking Status: Current some day smoker tobacco type: cigarettes alcohol intake: current alcohol intake frequency: 3 or more drinks per day ROS <CARLOS Lind - Last Filed: 07/19/23 15:25> ROS ED ROS Narrative Constitutional: Negative for fever, chills, malaise. CVS: Negative for chest pain, syncope. Respiratory: Negative for shortness of breath. GI: Positive for abdominal pain, nausea. Negative for vomiting, diarrhea, constipation, melena, hematochezia. Neuro: Positive for headache. EXAM <CARLOS Lind - Last Filed: 07/19/23 15:25> Physical Exam Narrative Exam Narrative: CONST: Patient currently in bed but appears nontoxic. EYES: Normal inspection. ENT: Normal inspection, moist mucous membranes. NECK: Normal inspection. RESP: No respiratory distress, CTAB. CVS: Regular rate and rhythm, no murmur, no gallop. ABD: Soft and nontender, no guarding or rebound, nondistended, no hepatosplenomegaly. SKIN: Color normal, no rash, warm, dry, intact. EXTREMITIES: Normal appearance, no pedal edema. NEURO: Oriented x4. Const Vital Signs: 07/19/23 11:18 07/19/23 12:18 07/19/23 11:18 Temperature 98.2 F 97.4 F L 98.1 F Temperature Source Temporal Temporal Temporal Pulse Rate 101 H 89 89 Respiratory Rate 18 16 16 Blood Pressure 132/66 H 144/91 H 144/91 H Blood Pressure Mean 88 108 108 Blood Pressure Source Monitor Blood Pressure Position Semi-Fowlers Blood Pressure Location Right Arm Pulse Ox 99 97 97 Oxygen Delivery Method Room Air Room Air Room Air <Dr. Jose L Kearns MD - Last Filed: 07/19/23 12:29> Physical Exam Const Vital Signs: 07/19/23 11:18 07/19/23 12:18 07/19/23 11:18 Temperature 98.2 F 97.4 F L 98.1 F Temperature Source Temporal Temporal Temporal Pulse Rate 101 H 89 89 Respiratory Rate 18 16 16 Blood Pressure 132/66 H 144/91 H 144/91 H Blood Pressure Mean 88 108 108 Blood Pressure Source Monitor Blood Pressure Position Semi-Fowlers Blood Pressure Location Right Arm Pulse Ox 99 97 97 Oxygen Delivery Method Room Air Room Air Room Air [facility] <CARLOS Lind - Last Filed: 07/19/23 15:25> [facility] Narrative Medical decision making narrative: History gathered from: Patient and significant other Patient relapsed and drink alcohol last night nausea headache, dry heaving, and abdominal upset. She appears well and nontoxic. Heart rates around 105 otherwise normal vital signs. Her medical exam is unremarkable. She was treated with IV fluids, Toradol, Tylenol, Zofran and Pepcid. We will check her blood counts and electrolytes. White count is 11.2. Normal hemoglobin. BMP shows normal electrolytes and renal function. Glucose is 121. Normal CO2 and anion gap. Lipase is 24 ruling out pancreatitis. Patient feels symptomatically improved and was sent home with prescription for Zofran. She does not want admitted for detox. I have personally performed a face to face assessment of the patient and have reviewed the LISHA Note. I performed a substantive portion of the visit including all aspects of the following. My gustafson findings include: History is 48-year-old female history of alcohol abuse. Had stopped drinking for several months and restarted drinking heavily yesterday. She does not want detox. States she has a hangover and just wants to feel better. Complaining of a headache. No head trauma. Also nausea without vomiting. Exam is [48-year-old female no acute distress. Vital signs stable afebrile. H EENT exam unremarkable. No trauma. Pupils are reactive Lesch motions are intact. Nontender. Scalp unremarkable. Neck nontender. Lungs clear. Heart regular rhythm rate about 95 no murmur. Chest wall and ribs nontender. Abdomen soft nondistended normal bowel sounds no peritoneal signs. Patient moving all 4 extremities. Calves are nontender without edema or cords. 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 Normal dorsi plantarflexion. Normal range of motion. Back nontender. No signs of trauma. Patient is awake and alert with no focal motor deficits.] Medical Decision Making [patient be treated with IV fluids and Zofran. Screening labs to be obtained. P.o. Tylenol. IV Toradol.] Other additions or changes: [None] Lab Data Labs: Laboratory Results - last 24 hr 07/19/23 12:00 WBC 11.2 H RBC 4.75 Hgb 14.9 Hct 43.6 MCV 91.8 MCH 31.4 MCHC 34.2 RDW Std Deviation 39.5 RDW Coeff of Jay 11.8 Plt Count TNP MPV 11.4 Immature Gran % (Auto) 0.400 Neut % (Auto) 72.1 H Lymph % (Auto) 23.3 [place] % (Auto) 3.5 Eos % (Auto) 0.2 Baso % (Auto) 0.5 Absolute Neuts (auto) 8.1 H Absolute Lymphs (auto) 2.60 Nucleated RBC % 0 Platelet Estimate ADEQUATE Sodium 144 Potassium 3.5 Chloride 113 H Carbon Dioxide 22.0 Anion Gap 9 BUN 11 Creatinine 0.71 Estim Creat Clear Calc 89.09 Est GFR (MDRD) Af Amer 115 Est GFR (MDRD) Non-Af 95 BUN/Creatinine Ratio 15.6 Glucose 121 H Calcium 8.4 L Lipase 24 <Dr. Jose L Kearns MD - Last Filed: 07/19/23 12:29> MDM MDM Narrative Medical decision making narrative: History gathered from: Patient and significant other Patient relapsed and drink alcohol last night nausea headache, dry heaving, and abdominal upset. She appears well and nontoxic. Heart rates around 105 otherwise normal vital signs. Her medical exam is unremarkable. Her abdomen is soft no tenderness so do not suspect pancreatitis. She was treated with IV fluids, Toradol, Tylenol, Zofran and Pepcid. We will check her blood counts and electrolytes. I have personally performed a face to face assessment of the patient and have reviewed the LISHA Note. I performed a substantive portion of the visit including all aspects of the following. My gustafson findings include: History is 48-year-old female history of alcohol abuse. Had stopped drinking for several months and restarted drinking heavily yesterday. She does not want detox. States she has a hangover and just wants to feel better. Complaining of a headache. No head trauma. Also nausea without vomiting. Exam is [48-year-old female no acute distress. Vital signs stable afebrile. H EENT exam unremarkable. No trauma. Pupils are reactive Lesch motions are intact. Nontender. Scalp unremarkable. Neck nontender. Lungs clear. Heart regular rhythm rate about 95 no murmur. Chest wall and ribs nontender. Abdomen soft nondistended normal bowel sounds no peritoneal signs. Patient moving all 4 extremities. Calves are nontender without edema or cords. 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 Normal dorsi plantarflexion. Normal range of motion. Back nontender. No signs of trauma. Patient is awake and alert with no focal motor deficits.] Medical Decision Making [patient be treated with IV fluids and Zofran. Screening labs to be obtained. P.o. Tylenol. IV Toradol.] Other additions or changes: [None] History & Record Review Discussion w/independent historian: Patient and Family Additional record(s) reviewed:: Prior inpatient record, Prior outpatient record, Prior ED visit and Prior labs Lab Data Attestation: I reviewed the patient's lab results. Labs: Laboratory Results - last 24 hr 07/19/23 12:00 WBC 11.2 H RBC 4.75 Hgb 14.9 Hct 43.6 MCV 91.8 MCH 31.4 MCHC 34.2 RDW Std Deviation 39.5 RDW Coeff of Jay 11.8 Plt Count TNP MPV 11.4 Immature Gran % (Auto) 0.400 Neut % (Auto) 72.1 H Lymph % (Auto) 23.3 [place] % (Auto) 3.5 Eos % (Auto) 0.2 Baso % (Auto) 0.5 Absolute Neuts (auto) 8.1 H Absolute Lymphs (auto) 2.60 Nucleated RBC % 0 Platelet Estimate ADEQUATE Sodium 144 Potassium 3.5 Chloride 113 H Carbon Dioxide 22.0 Anion Gap 9 BUN 11 Creatinine 0.71 Estim Creat Clear Calc 89.09 Est GFR (MDRD) Af Amer 115 Est GFR (MDRD) Non-Af 95 BUN/Creatinine Ratio 15.6 Glucose 121 H Calcium 8.4 L Lipase 24 Discharge Plan Triage Chief Complaint: ETOH Intox ED Midlevel Provider: Love Haney ED Provider: Jose L Kearns Dx/Rx/DC Orders Clinical Impression: Alcohol abuse, Nausea and vomiting Instructions: Alcohol Addiction, ED Vomiting (Adult) Prescriptions: New ondansetron 4 mg tablet,disintegrating 4 mg PO Q8H PRN PRN (Reason: Nausea) Qty: 10 0RF No Action albuterol sulfate [Ventolin HFA] 1 INHALER inhaler 1 - 2 puff inhalation Q4H PRN PRN (Reason: Wheezing) montelukast 10 MG tablet 10 mg PO DAILY fluticasone propionate 1 SPRAY spray,suspension 1 spray NASAL DAILY PRN (Reason: Nasal Congestion) trazodone 50 mg Tablet 50 mg PO QHS topiramate 25 mg tablet 25 mg PO DAILY Patient Comments: take 1 tablet by mouth twice a day for headache PREVENTION pantoprazole 40 mg tablet,delayed release (DR/EC) 40 mg PO DAILY Patient Comments: take 1 tablet by mouth 1/2 HOUR BEFORE BREAKFAST ON EMPTY STOMACH estradiol 0.5 mg tablet 0.5 mg PO DAILY Patient Comments: take 1 tablet by mouth once daily ondansetron 4 mg tablet,disintegrating 4 mg PO Q8H PRN (Reason: Nausea) Patient Comments: take 1 tablet by mouth every 8 hours if needed for nausea and vomiting progesterone micronized 100 mg capsule 100 mg PO QHS Patient Comments: take 1 capsule by mouth at bedtime Stand Alone Forms: ED Work / School Excuse Primary Care Provider: Alon Guerrier Referrals: Alon Guerrier, [Primary Care Provider] - Activity Restrictions/Additional Instructions: Stay hydrated and when you eating the slowly with bland foods to avoid upsetting your stomach Disposition Disposition: Home, Self Care Discharge Date/Time: 07/19/23 14:09
[2023-07-19] MEDS: Ondansetron 4 MG/2 ML Vial IV (12:23)
[2023-07-19] MEDS: Ketorolac 15 MG/ML Vial IV (12:24)
[2023-07-19] MEDS: Famotidine 200 MG/20 ML MDV 20 MG in 0.9% Normal Saline (Pres. free 8 ML 300 MG IV (12:28)
[2023-07-19] MEDS: Acetaminophen 500 MG Tablet 1000 MG PO (12:32)
[2023-07-19 12:45] LABS: Absolute Neutrophil Count 8.1 X10^3/uL (2.0-7.7); Basophil# 0.06 X10^3/uL; Basophil% 0.5 % (0-1); Eosinophil# 0.02 X10^3/uL; Eosinophils% 0.2 % (0-5); Hematocrit 43.6 % (37-47); Hemoglobin 14.9 g/dL (12.0-15.0); Lymphocyte % 23.3 % (19-41); Mean Corp Hgb Conc 34.2 g/dL (32-36); Mean Corpuscular Hgb 31.4 pg (27.0-32.0); Mean Corpuscular Volume 91.8 fL (81-99); Mean Platelet Vol. 11.4 fl (6.2-12.0); Monocyte# 0.39 X10^3/uL; Monocyte% 3.5 % (0-10); NRBC Flagged by Analyzer 0 % (0-5); Neutrophil # 8.05 X10^3/uL (2.7-7.7); Neutrophil % 72.1 % (47-70); POSITIVE COUNT YES; RBC Distribution Width CV 11.8 % (11.6-14.6); RBC Distribution Width SD 39.5 fl (35.1-43.9); Red Blood Count 4.75 M/mm3 (4.2-5.4); White Blood Count 11.2 K/mm3 (4.4-11.0)
[2023-07-19 13:00] LABS: Anion Gap 9 (5-15); BUN 11 mg/dL (7-18); BUN/Creat Ratio 15.6 RATIO (10-20); Calcium,Total 8.4 mg/dL (8.5-10.1); Chloride 113 mmol/L (98-107); Creatinine, Serum 0.71 mg/dL (0.55-1.02); EST Glomerular Filtration Rate 95 mL/min (>60); Est Glom Filt Rate - Afr Amer 115 mL/min (>60); Estimated Creatinine Clearance 89.09 ml/min; Glucose 121 mg/dL (74-106); Lipase 24 U/L (13-75); Potassium 3.5 mmol/L (3.5-5.1); Sodium Level 144 mmol/L (136-145)
[2023-07-19 13:06] LABS: Differential Indicated SCAN CRITERIA MET
[2023-07-19 13:07] LABS: Platelet Estimate ADEQUATE (ADEQ)
== END 2023-07-19 14:09 | disposition home or self-care (01) ==
PROVIDERS: Physician Assistant; Emergency Provider Emergency Medicine; PCP Student in an Organized Health Care Education/Training Program; Visit Provider Emergency Medicine
DX: F10.10 Alcohol abuse, uncomplicated (principal); J44.9 Chronic obstructive pulmonary disease, unspecified; R11.2 Nausea with vomiting, unspecified; R10.84 Generalized abdominal pain; G43.909 Migraine, unspecified, not intractable, without status migrainosus; Z79.899 Other long term (current) drug therapy; F17.210 Nicotine dependence, cigarettes, uncomplicated
CPT/HCPCS: 80048; 83690; 85025; 96365; 96375; 99283; J7030; A4216; J2405; J3490